=== PATIENT | female | born 1955 | race Caucasian/White ===

== ENCOUNTER 2023-03-01 10:21 | Emergency (ER) | payer OTHER ==
--- NOTE | 2023-03-01 11:09 | RAD REPORT ---
EXAM DESCRIPTION: CT - CTFB CLINICAL HISTORY: TRAUMA COMPARISON: No comparisons TECHNIQUE: Axial 2 mm thick images of the face were obtained with sagittal and coronal reconstructio n images. All CT scans are performed using dose optimization technique as appropriate and may include automated exposure control or mA/KV adjustment according to patient size. FINDINGS: No acute facial bone fracture is seen.The mandible is intact. The globes and orbital contents are grossly unremarkable.The paranasal sinuses and mastoids are clear . IMPRESSION: Negative for facial bone fracture.
--- NOTE | 2023-03-01 11:10 | RAD REPORT ---
EXAM DESCRIPTION: CT - Head Brain Wo Cont - 03/01/2023 11:02 am CLINICAL HISTORY: TRAUMA COMPARISON: No comparisons TECHNIQUE: All CT scans are performed using dose optimization technique as appropriate and may inclu de automated exposure control or mA/KV adjustment according to patient size. FINDINGS: No intracranial hemorrhage, hydrocephalus or extra-axial fluid collection.No areas of brai n edema or evidence of midline shift. The paranasal sinuses and mastoids are clear. The calvarium is intact. IMPRESSION: No acute intracranial abnormality.
--- NOTE | 2023-03-01 11:53 | ER ---
Nurse's Notes [facility] Name: Katie Iglesias Age: 67 yrs Sex: Female : 1955 Arrival Date: 03/01/2023 Time: 10:21 Bed 11 Private MD: Diagnosis: Unspecified injury of head, initial encounter;Contusion of unspecified part of head, initial encounter Presentation: 03/01 10:37 Coronavirus screen: Vaccine status: Patient reports receiving the 2nd dose of the covid ll1 vaccine. Client denies travel out of the [place] in the last 14 days. At this time, the client does not indicate any symptoms associated with coronavirus-19. Ebola Screen: Patient denies travel to an Ebola-affected area in the 21 days before illness onset. Mechanism of Injury:. Initial Sepsis Screen: Does the patient meet any 2 criteria? No. Patient's initial sepsis screen is negative. Does the patient have a suspected source of infection? No. Patient's initial sepsis screen is negative. Risk Assessment: Do you want to hurt yourself or someone else? Patient reports no desire to harm self or others. Onset of symptoms was February 26, 2023. 10:37 Method Of Arrival: Ambulatory ll1 10:37 Acuity: HELIO 3 ll1 10:44 Chief complaint: Patient states: Fell at movie theatre Wednesday. Hit L side of forehead. ll1 L eye bruising noted. Mechanism of Injury: resulted from a fall. Historical: - Allergies: 10:36 No Known Allergies; ll1 - PMHx: 10:36 Hypertensive disorder; Hypercholesterolemia; ll1 - PSHx: 10:36 L knee replacement; section; ll1 10:37 Thyroidectomy; ll1 - Immunization history:: Client reports receiving the 2nd dose of the Covid vaccine. - Social history:: Smoking status: Patient denies any tobacco usage or history of. - Family history:: not pertinent. Vital Signs: 10:37 BP 170 / 84; Pulse 62; Resp 17; Temp 98.6; Pulse Ox 98% ; Weight 67.13 kg; Height 5 ft. ll1 0 in. ; 11:40 BP 174 / 100; Pulse 59; Resp 17; Pulse Ox 97% ; jl7 11:57 BP 169 / 84; Pulse 62; Resp 18; Pulse Ox 98% on R/A; mb9 10:37 Body Mass Index 28.90 (67.13 kg, 152.4 cm) ll1 [place] Coma Score: 10:37 Eye Response: spontaneous(4). Motor Response: obeys commands(6). Verbal Response: ll1 oriented(5). Total: 15. 10:50 Eye Response: spontaneous(4). Motor Response: obeys commands(6). Verbal Response: cp3 oriented(5). Total: 15. ED Course: 10:31 Patient arrived in ED. ll1 10:32 Gladys Vincent MD is Attending Physician. cp3 10:38 Triage completed. ll1 10:39 Arm band placed on. ll1 11:02 CT Facial Bones W/O Con In Process Unspecified. EDMS 11:02 CT Head Brain wo Cont In Process Unspecified. EDMS 11:40 Viviana Ortega, RN is Primary Nurse. jl7 11:58 No provider procedures requiring assistance completed. Patient did not have IV access mb9 during this emergency room visit. Administered Medications: No medications were administered Outcome: 11:52 Discharge ordered by . cp3 11:58 Discharged to home ambulatory. mb9 11:58 Condition: stable 11:58 Discharge instructions given to patient, Instructed on discharge instructions, follow up and referral plans. Demonstrated understanding of instructions, follow-up care. 11:58 Patient left the ED. mb9 Signatures: Dispatcher [employer] EDAL Gladys Vincent MD MD cp3 Viviana Ortega, RN RN jl7 Jabari Guzman RN RN 1 Zamzam Sauceda RN RN mb9 Corrections: (The following items were deleted from the chart) 10:39 10:37 Pulse 62bpm; Resp 17bpm; Pulse Ox 98%; Temp 98.6F; 67.13 kg; Height 5 ft. 0 in.; ll1 BMI: 28.9; ll1
--- NOTE | 2023-03-01 11:53 | EDPHYS ---
Physician Documentation [facility] Name: Katie Iglesias Age: 67 yrs Sex: Female : 1955 Arrival Date: 03/01/2023 Time: 10: Bed 11 Private MD: SHAHANA Physician Gladys Vincent HPI: 03/01 10:50 This 67 yrs old Female presents to ER via Ambulatory with complaints of Closed Head cp3 Injury-Adult - 02/26. 10:50 The patient or guardian reports injury, tenderness. The complaints affect the forehead cp3 and left eye. Context of injury: The problem was sustained at an office, at the patient was at the movies and got up after sitting for 3 hours watching [place] and fell hitting her face and head . no loc. complaining of some mild left knee pain and mild chest wall discomfort. Onset: The symptoms/episode began/occurred 3 day(s) ago. Associated signs and symptoms: The patient has no apparent associated signs or symptoms, Pertinent negatives: patient denies any alcohol consumption, dazed, double vision, headache, nausea, neck pain, seizure, shortness of breath. Severity of symptoms: At their worst the symptoms were moderate. The patient has not experienced similar symptoms in the past. The patient has not recently seen a physician. Historical: - Allergies: 10:36 No Known Allergies; ll1 - PMHx: 10:36 Hypertensive disorder; Hypercholesterolemia; ll1 - PSHx: 10:36 L knee replacement; section; ll1 10:37 Thyroidectomy; ll1 - Immunization history:: Client reports receiving the 2nd dose of the Covid vaccine. - Social history:: Smoking status: Patient denies any tobacco usage or history of. - Family history:: not pertinent. ROS: 10:50 Constitutional: Negative for fever, chills, and weight loss, Eyes: Negative for injury, cp3 pain, redness, and discharge, ENT: Negative for injury, pain, and discharge, Neck: Negative for injury, pain, and swelling, Respiratory: Negative for shortness of breath, cough, wheezing, and pleuritic chest pain, Abdomen/GI: Negative for abdominal pain, nausea, vomiting, diarrhea, and constipation, Back: Negative for injury and pain, : Negative for injury, bleeding, discharge, and swelling, Skin: Negative for injury, rash, and discoloration, Neuro: Negative for headache, weakness, numbness, tingling, and seizure. 10:50 ENT: Positive for left facial brusing and contusion. 10:50 MS/extremity: Positive for tenderness, The patient on endorses right knee tenderness ambulatory without assistance. Exam: 10:50 Constitutional: This is a well developed, well nourished patient who is awake, alert, cp3 and in no acute distress. 10:50 ENT: Nares patent. No nasal discharge, no septal abnormalities noted. Tympanic membranes are normal and external auditory canals are clear. Oropharynx with no redness, swelling, or masses, exudates, or evidence of obstruction, uvula midline. Mucous membranes moist. Neck: Trachea midline, no thyromegaly or masses palpated, and no cervical lymphadenopathy. Supple, full range of motion without nuchal rigidity, or vertebral point tenderness. No Meningismus. Chest/axilla: Normal chest wall appearance and motion. Nontender with no deformity. No lesions are appreciated. Cardiovascular: Regular rate and rhythm with a normal S1 and S2. No gallops, murmurs, or rubs. Normal PMI, no JVD. No pulse deficits. Respiratory: Lungs have equal breath sounds bilaterally, clear to auscultation and percussion. No rales, rhonchi or wheezes noted. No increased work of breathing, no retractions or nasal flaring. Abdomen/GI: Soft, non-tender, with normal bowel sounds. No distension or tympany. No guarding or rebound. No evidence of tenderness throughout. Back: No spinal tenderness. No costovertebral tenderness. Full range of motion. 10:50 Skin: Warm, dry with normal turgor. Normal color with no rashes, no lesions, and no evidence of cellulitis. Neuro: Awake and alert, GCS 15, oriented to person, place, time, and situation. Cranial nerves II-XII grossly intact. Motor strength 5/5 in all extremities. Sensory grossly intact. Cerebellar exam normal. Normal gait. Psych: Awake, alert, with orientation to person, place and time. Behavior, mood, and affect are within normal limits. 10:50 Head/face: Patient with contusion over left forehead and orbit no crepitus. Extraocular movements are intact. 10:50 Musculoskeletal/extremity: Patient with mild tenderness over the left knee. No effusion or soft tissue swelling noted. Vital Signs: 10:37 BP 170 / 84; Pulse 62; Resp 17; Temp 98.6; Pulse Ox 98% ; Weight 67.13 kg; Height 5 ft. ll1 0 in. ; 11:40 BP 174 / 100; Pulse 59; Resp 17; Pulse Ox 97% ; jl7 11:57 BP 169 / 84; Pulse 62; Resp 18; Pulse Ox 98% on R/A; mb9 10:37 Body Mass Index 28.90 (67.13 kg, 152.4 cm) ll1 [employer] Coma Score: 10:37 Eye Response: spontaneous(4). Motor Response: obeys commands(6). Verbal Response: ll1 oriented(5). Total: 15. 10:50 Eye Response: spontaneous(4). Motor Response: obeys commands(6). Verbal Response: cp3 oriented(5). Total: 15. MDM: 10:32 Patient medically screened. cp3 10:50 Differential diagnosis: Contusion of head, face, Intracranial bleed- subdural, cp3 epidural, subarachnoid, intracerebral, Concussion without LOC. cerebral contusion. Data reviewed: vital signs, nurses notes, radiologic studies, CT scan. Consideration of Admission/Observation Escalation of care including admission/observation considered. I considered the following discharge prescriptions or medication management in the emergency department Patient declined medications at this time. Offered Motrin Tylenol. 11:51 ED course: results reviewed with patient and family at bedside. cp3 11:53 ED course: bp elevated- patient took lisinopril at bedside. cp3 03/01 10:49 Order name: CT Facial Bones W/O Con; Complete Time: 11:49 cp3 03/01 11:50 Interpretation: No acute disease. cp3 03/01 10:49 Order name: CT Head Brain wo Cont; Complete Time: 11:49 cp3 03/01 11:50 Interpretation: No acute disease. cp3 Administered Medications: No medications were administered Disposition Summary: 03/01/23 11:52 Discharge Ordered Location: Home cp3 Condition: Stable cp3 Diagnosis - Unspecified injury of head, initial encounter cp3 - Contusion of unspecified part of head, initial encounter cp3 Discharge Instructions: - Discharge Summary Sheet cp3 - Head Injury, Adult cp3 - Hypertension, Adult, [id number] cp3 Forms: - Medication Reconciliation Form cp3 - Thank You Letter cp3 - Antibiotic Education cp3 - Prescription Opioid Use cp3 - Patient Portal Instructions cp3 - Leadership Thank You Letter cp3 Signatures: Dispatcher [employer] Gladys Woody MD MD cp3 Jabari Guzman RN RN ll1
[2023-03-01 12:02] VITALS: TEMP 98.6
[2023-03-01 12:04] VITALS: BP 169/84; O2SAT 98
== END 2023-03-01 11:58 | disposition home or self-care (01) ==
LOC: ER 10:21
DX: S00.83XA Contusion of other part of head, initial encounter (principal); R07.9 Chest pain, unspecified; M25.562 Pain in left knee; I10 Essential (primary) hypertension; Z96.652 Presence of left artificial knee joint
CPT/HCPCS: 70450; 70486; 76377; 99283

== ENCOUNTER 2023-03-14 14:52 | Emergency (ER) | payer OTHER ==
--- OUTSIDE RECORDS SUMMARY | 2023-03-14 14:55 | XMS REPORT | Continuity of Care Document ---
:1955 Author Organization [facility] t Address [address] [facility] [place] [address] Care Team Providers Name Role Phone Asked, No Pcp Primary Care Physician Unavailable SISSY SPENCE Attending Clinician Unavailable GILMA ARANGO Attending Clinician Unavailable Ish Richard MA Attending Clinician Unavailable Dean Jerry MD Attending Clinician ALLIE NAPIER Attending Clinician Unavailable Allie Napier MD Attending Clinician [phone] Payers Payer Name Policy Type Policy Number Effective Date Expiration Date Lynn LEIVA MA PPO 5 [id number] 2022 00:00:00 Problems Condition Condition Condition Status Onset Resolution Last Treating Co mments Source Name Details Category Date Date Treatment Clinician Date Primary Primary Disease Active Kaila hypertensi hypertensi 616 Se ybold on on 00:00: - 00 Externa l Hyperlipid Hyperlipid Disease Active Clraitza wisdom emia emia 6-16 Seybold 00:00: - 00 Externa l 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 Social History Social Habit Start Date Stop Date Quantity Comments Source [facility] Tobacco use and 2023-01-14 2023-01-14 Smokeless [facility] exposure 00:00:00 00:00:00 tobacco non-user Hospital Alcohol intake 2023-01-14 2023-01-14 Current drinker [facility] 00:00:00 00:00:00 of alcohol Hospital (finding) History of Social 2023-01-14 2023-01-[address] function 00:00:00 00:00:00 Hospital Sex Assigned At [birth year] [facility] Smoking Status Start Date Stop Date Source Never smoked tobacco [facility] Medications Ordered Filled Start Stop Current Ordering Indication Dosage Frequency Signature Comments Components Source Medication Medication Date Date Medication? Clinician (SIG) Name Name Lisinopril Yes lisinopril K elsey 10 MG oral 6-16 10 mg Seybold Tablet 15:07: tablet 1 - 23 po qd Externa l Lisinopril Yes lisinopril K elsey 10 MG oral -01 10 mg Seybold Tablet 12:05: tablet 1 - 02 po qd Externa l Benzonatate 2022- No 200mg 1 capsule Kaila 200 MG oral 12-10- (200 mg Seyb old Capsule 12:04: 00:00 total) - 26 :00 every 8 Externa hours l Furosemide Yes TAKE ONE Monster sey (LASIX) 20 5-27 (1) TABLET Sey bold MG oral 00:00: BY MOUTH - Tablet 00 EVERY DAY Externa NEEDED. l Furosemide Yes TAKE ONE Monster sey (LASIX) 20 5-27 (1) TABLET Sey bold MG oral 00:00: BY MOUTH - Tablet 00 EVERY DAY Externa NEEDED. l Simvastatin 2022- No 20mg Take 1 Monster sey 20 MG oral 5-05 12-10 tablet (20 Se ybold Tablet 00:00: 00:00 mg total) - 00 :00 by mouth Externa daily l Escitalopra 2022- No 1.5{eac 1.5 each Kaila m Oxalate 4-28 04-28 h} daily Seybold 10 MG oral 14:18: 00:00 - Tablet 24 :00 Externa l Simvastatin 2022- No simvastati Kaila 10 MG oral 4-28 -28 n 10 mg Seybo ld Tablet 14:11: 00:00 tablet 1 - 51 :00 po qd Externa l Furosemide 2022- No 1{each} 1 each K elsey 20 MG oral 4-28 -28 daily Seybold Tablet 14:10: 00:00 - 23 :00 Externa l Simvastatin 2022-0 Yes [id number] 40mg Take 1 Kaila 40 MG oral 4-28 tablet (40 Sey bold Tablet 00:00: mg total) - 00 by mouth Externa nightly l Escitalopra 0 Yes [id number] 40mg Take 2 Kaila m Oxalate 4-28 tablets Seybold 20 MG oral 00:00: (40 mg - Tablet 00 total) by Externa mouth l daily hydroCHLORO 2022-0 Yes [id number] 12.5mg Take 1 Kaila thiazide 4-28 tablet Seybold 12.5 MG 00:00: (12.5 mg - oral Tablet 00 total) by Ext leonel mouth l daily Simvastatin 2022-0 Yes [id number] 40mg Take 1 Kaila 40 MG oral 4-28 tablet (40 Sey bold Tablet 00:00: mg total) - 00 by mouth Externa nightly l Escitalopra 0 Yes [id number] 40mg Take 2 Kaila m Oxalate 4-28 tablets Seybold 20 MG oral 00:00: (40 mg - Tablet 00 total) by Externa mouth l daily hydroCHLORO 2022-0 Yes [id number] 12.5mg Take 1 Kaila thiazide 4-28 tablet Seybold 12.5 MG 00:00: (12.5 mg - oral Tablet 00 total) by Ext leonel mouth l daily Simvastatin 2022-0 Yes [id number] 40mg Take 1 Kaila 40 MG oral 4-28 tablet (40 Sey bold Tablet 00:00: mg total) - 00 by mouth Externa nightly l Escitalopra Yes [id number] 40mg Take 2 Kaila m Oxalate 4-28 tablets Seybold 20 MG oral 00:00: (40 mg - Tablet 00 total) by Externa mouth l daily hydroCHLORO 0 2022- No [id number] 12.5mg Take 1 Kaila thiazide 4-28 06-16 tablet Seybold 12.5 MG 00:00: 00:00 (12.5 mg - oral Tablet 00 :00 total) by Ext leonel mouth l daily methylPREDN Yes USE Phuong ey ISolone 4 4-24 DIRECTED Seybol d MG oral 00:00: BY PACKAGE - Tablet 00 INSTRUCTIO Externa Therapy NS. l Pack methylPREDN 2022- No USE Monster sey ISolone 4 4-24 12-10 DIRECTED Seybo ld MG oral 00:00: 00:00 BY PACKAGE - Tablet 00 :00 INSTRUCTIO Externa Therapy NS. l Pack Escitalopra 2021-07 Yes 1.5{eac 1.5 each Kaila m Oxalate 0-04 h} daily Seybold 10 MG oral 13:37: - Tablet 52 Externa l Furosemide 2021-07 Yes 1{each} 1 each Ke lsey 20 MG oral 0-04 daily Seybold Tablet 13:37: - 52 Externa l Lisinopril 2021-07 Yes lisinopril K elsey 10 MG oral 0-04 10 mg Seybold Tablet 13:37: tablet 1 - 52 po qd Externa l Simvastatin 2021-07 Yes simvastati Kaila 10 MG oral 0-04 n 10 mg Seybol d Tablet 13:37: tablet 1 - 52 po qd Externa l Lisinopril 2021-07 Yes lisinopril K elsey 10 MG oral 0-04 10 mg Seybold Tablet 13:37: tablet 1 - 52 po qd Externa l Immunizations Ordered Immunization Filled Immunization Date Status Commen ts Source Name Name COVID-19 BIVALENT 2022-04-28 Completed Kaila Seybold VACCINE MODERNA 00:00:00 - Externa l COVID-19 BIVALENT 2022-04-28 Completed Kaila Hernandesybold BOOSTER VACCINE 00:00:00 - Externa l MODERNA COVID-19 BIVALENT 2022-04-28 Completed Kaila Seybold VACCINE MODERNA 00:00:00 - Externa l Influenza Virus 2022-04-11 Completed Kaila rocheold Vaccine, Split, up 00:00:00 - Exte rnal to age 3 Pneumococcal 2022-04-11 Completed Kaila Seybo ld Vaccine, Conjugate 00:00:00 - Exte rnal 20 Influenza Virus 2022-04-11 Completed Kaila Hernandes ybold Vaccine, Split, up 00:00:00 - Exte rnal to age 3 Pneumococcal 2022-04-11 Completed Kaila Seybo ld Vaccine, Conjugate 00:00:00 - Exte rnal 20 Influenza Virus 2022-04-11 Completed Kaila Hernandes ybold Vaccine, Split, up 00:00:00 - Exte rnal to age 3 Pneumococcal 2022-04-11 Completed Kaila Seybo ld Vaccine, Conjugate 00:00:00 - Exte rnal 20 Pneumococcal 2022-03-25 Completed Kaila Seybo ld Vaccine, Conjugate 00:00:00 - Exte rnal 20 Pneumococcal 2022-03-25 Completed Kaila Seybo ld Vaccine, Conjugate 00:00:00 - Exte rnal 20 Pneumococcal 2022-03-25 Completed Kaila Seybo ld Vaccine, Conjugate 00:00:00 - Exte rnal 20 Pneumococcal 2022-03-25 Completed Kaila Seybo ld Vaccine, Conjugate 00:00:00 - Exte rnal 20 COVID-19 BIVALENT 2021-11-07 Completed Kaila Seybold VACCINE MODERNA 00:00:00 - Externa l Covid-19 Vaccine 2021-11-07 Completed Kaila thomas Moderna (Spikevax), 00:00:00 - Ext ernal Mrna-lnp, Julián Protein, Pf COVID-19 BIVALENT 2021-11-07 Completed Kaila Smithold BOOSTER VACCINE 00:00:00 - Externa l MODERNA COVID-19 BIVALENT 2021-11-07 Completed Kaila Hernandesybold VACCINE MODERNA 00:00:00 - Externa l Covid-19 Vaccine 2021-11-07 Completed Kaila Bailey eybold Moderna (Spikevax), 00:00:00 - Ext ernal Mrna-lnp, Julián Protein, Pf Tdap- (Boostrix, 2021-10-07 Completed Kaila thomas Adacel) 00:00:00 - External Tdap- (Boostrix, 2021-10-07 Completed Kaila thomas Adacel) 00:00:00 - External Tdap- (Boostrix, 2021-10-07 Completed Kaila thomas Adacel) 00:00:00 - External Tdap- (Boostrix, 2021-10-07 Completed Kaila thomas Adacel) 00:00:00 - External Influenza, 2021-05-05 Completed Kaila Mcintosh Injectable, Mdck, 00:00:00 - Exter nal Preservative Free, Quadrivalt Influenza, 2021-05-05 Completed Kaila Mcintosh Injectable, Mdck, 00:00:00 - Exter nal Preservative Free, Quadrivalt Influenza, 2021-05-05 Completed Kaila Mcintosh Injectable, Mdck, 00:00:00 - Exter nal Preservative Free, Quadrivalt Influenza, 2021-05-05 Completed Kaila Mcintosh Injectable, Mdck, 00:00:00 - Exter nal Preservative Free, Quadrivalt Covid-19 Vaccine 2020-08-08 Completed Kaila thomas Moderna (Spikevax), 00:00:00 - Ext ernal Mrna-lnp, Julián Protein, Pf Covid-19 Vaccine 2020-08-08 Completed Kaila thomas Moderna (Spikevax), 00:00:00 - Ext ernal Mrna-lnp, Julián Protein, Pf Covid-19 Vaccine 2020-08-08 Completed Kaila thomas Moderna (Spikevax), 00:00:00 - Ext ernal Mrna-lnp, Julián Protein, Pf Covid-19 Vaccine 2020-08-08 Completed Kaila thomas Moderna (Spikevax), 00:00:00 - Ext ernal Mrna-lnp, Julián Protein, Pf Covid-19 Vaccine 2020-07-12 Completed Kaila thomas Moderna (Spikevax), 00:00:00 - Ext ernal Mrna-lnp, Julián Protein, Pf Covid-19 Vaccine 2020-07-12 Completed Kaila thomas Moderna (Spikevax), 00:00:00 - Ext ernal Mrna-lnp, Julián Protein, Pf Covid-19 Vaccine 2020-07-12 Completed Kaila myersamparo Moderna (Spikevax), 00:00:00 - Ext ernal Mrna-lnp, Julián Protein, Pf Covid-19 Vaccine 2020-07-12 Completed Kaila Lynn myersamparo Moderna (Spikevax), 00:00:00 - Ext ernal Mrna-lnp, Julián Protein, Pf Covid-19 Vaccine 2020-07-10 Completed Kaila myersamparo Moderna (Spikevax), 00:00:00 - Ext ernal Mrna-lnp, Julián Protein, Pf Covid-19 Vaccine 2020-07-10 Completed Kailaadam myersamparo Moderna (Spikevax), 00:00:00 - Ext ernal Mrna-lnp, Julián Protein, Pf Covid-19 Vaccine 2020-07-10 Completed Kaila Lynn myersamparo Moderna (Spikevax), 00:00:00 - Ext ernal Mrna-lnp, Julián Protein, Pf Covid-19 Vaccine 2020-07-10 Completed Kaila myersamparo Moderna (Spikevax), 00:00:00 - Ext ernal Mrna-lnp, Julián Protein, Pf Influenza Virus 2020-03-12 Completed Kaila Se ybold Vaccine, Split, up 00:00:00 - Exte rnal to age 3 Influenza Virus 2020-03-12 Completed Kaila Hernandes ybold Vaccine, Split, up 00:00:00 - Exte rnal to age 3 Influenza Virus 2020-03-12 Completed Kaila Se ybold Vaccine, Split, up 00:00:00 - Exte rnal to age 3 Influenza Virus 2020-03-12 Completed Kaila Se ybold Vaccine, Split, up 00:00:00 - Exte rnal to age 3 Influenza Virus 2019-11-09 Completed Kaila Se ybold Vaccine, No Preserv, 00:00:00 - Ex ternal age 6 months and up Influenza Virus 2019-11-09 Completed Kaila Se ybold Vaccine, No Preserv, 00:00:00 - Ex ternal age 6 months and up Influenza Virus 2019-11-09 Completed Kaila Se ybold Vaccine, No Preserv, 00:00:00 - Ex ternal age 6 months and up Influenza Virus 2019-11-09 Completed Kaila Se ybold Vaccine, No Preserv, 00:00:00 - Ex ternal age 6 months and up Influenza Virus 2019-07-12 Completed Kaila Se ybold Vaccine, 00:00:00 - External Quadrivalent, High Dose, Age 65 And Up Influenza Virus 2019-07-12 Completed Kaila Se ybold Vaccine, 00:00:00 - External Quadrivalent, High Dose, Age 65 And Up Influenza Virus 2019-07-12 Completed Kaila Se ybold Vaccine, 00:00:00 - External Quadrivalent, High Dose, Age 65 And Up Influenza Virus 2019-07-12 Completed Kaila Se ybold Vaccine, 00:00:00 - External Quadrivalent, High Dose, Age 65 And Up Vital Signs Vital Name Observation Time Observation Value Comments Source Systolic blood 2022-12-25 20:03:00 132 mm[Hg] Kaila Seybold - pressure External Diastolic blood 2022-12-25 20:03:00 72 mm[Hg] Kelse y Seybold - pressure External Heart rate 2022-12-25 20:03:00 69 /min Kaila S eybold - External Body temperature 2022-12-25 20:03:00 36.44 Bailey Phuong ey Seybold - External Respiratory rate 2022-12-25 20:03:00 20 /min Phuong ey Seybold - External Body height 2022-12-25 20:03:00 152.4 cm Kaila S eybold - External Oxygen saturation in 2022-12-25 20:03:00 97 /min Kaila Mcintosh - Arterial blood by External Pulse oximetry Systolic blood 2022-12-10 17:01:00 118 mm[Hg] Kaila Seybold - pressure External Diastolic blood 2022-12-10 17:01:00 66 mm[Hg] Kelse y Seybold - pressure External Heart rate 2022-12-10 17:01:00 87 /min Kaila S eybold - External Body temperature 2022-12-10 17:01:00 36.28 Bailey Phuong ey Seybold - External Respiratory rate 2022-12-10 17:01:00 14 /min Phuong ey Seybold - External Body height 2022-12-10 17:01:00 152.4 cm Kaila S eybold - External Systolic blood 2022-11-06 18:47:00 139 mm[Hg] Kaila Seybold - pressure External Diastolic blood 2022-11-06 18:47:00 86 mm[Hg] Kelse y Seybold - pressure External Heart rate 2022-11-06 18:47:00 56 /min Kaila S eybold - External Body temperature 2022-11-06 18:47:00 36.61 Bailey Phuong ey Seybold - External Respiratory rate 2022-11-06 18:47:00 15 /min Phuong ey Seybold - External Body height 2022-11-06 18:47:00 152.4 cm Kaila Bailey eybold - External Oxygen saturation in 2022-11-06 18:47:00 98 /min Kaila Mcintosh - Arterial blood by External Pulse oximetry Systolic blood 2022-04-14 18:34:00 140 mm[Hg] Kaila Seybold - pressure External Diastolic blood 2022-04-14 18:34:00 62 mm[Hg] Monsterse y Seybold - pressure External Heart rate 2022-04-14 18:34:00 67 /min Kaila Bailey eybold - External Body temperature 2022-04-14 18:34:00 37.17 Bailey Phuong ey Seybold - External Respiratory rate 2022-04-14 18:34:00 16 /min Phuong ey Seybold - External Body height 2022-04-14 18:34:00 152.4 cm Kaila Bailey eybold - External Body height 2023-01-14 14:29:00 152.4 cm [facility] Body weight 2023-01-14 14:29:00 68.04 kg [facility] BMI 2023-01-14 14:29:00 29.29 kg/m2 [facility] Procedures Procedure Date / Time Performing Clinician Source Performed XR KNEE 4+ VW RIGHT 2023-01-14 14:36:54 Dean Jerry [facility] NE ARTHROCENTESIS 2023-01-14 14:20:00 Deb Suarez [facility] ASPIR&/INJ MAJOR JT/BURSMaulik Rojas W/O US Plan of Care Planned Activity Planned Date Details Comments Source Future Scheduled 2023-03-10 Screening for [facility] Test 00:09:57 malignant neoplasm of colon (procedure) [code = 007724517] Future Scheduled 2023-03-10 Screening for [facility] Test 00:09:57 malignant neoplasm of colon (procedure) [code = 349844412] Future Scheduled 2023-03-10 Screening for [facility] Test 00:09:57 malignant neoplasm of colon (procedure) [code = 045679428] Future Scheduled 2023-03-10 65+ PNEUMOCOCCAL [facility] Test 00:09:57 VACCINE (1 - PCV) [code = 65+ PNEUMOCOCCAL VACCINE (1 - PCV)] Future Scheduled 2023-03-10 Hepatitis C screening [facility] Test 00:09:57 (procedure) [code = 849642293] Future Scheduled 2023-03-10 BREAST CANCER [facility] Test 00:09:57 SCREENING [code = BREAST CANCER SCREENING] Future Scheduled 2023-03-10 Screening for [facility] Test 00:09:57 malignant neoplasm of colon (procedure) [code = 277530749] Future Scheduled 2023-03-10 Screening for [facility] Test 00:09:57 malignant neoplasm of colon (procedure) [code = 867028696] Future Scheduled 2023-03-10 SHINGLES VACCINES (1 Met [facility] Test 00:09:57 of 2) [code = SHINGLES VACCINES (1 of 2)] Future Scheduled 2023-03-10 COVID-19 VACCINE (5 - Me [facility] Test 00:09:57 Moderna series) [code = COVID-19 VACCINE (5 - Moderna series)] Future Scheduled 2023-03-10 INFLUENZA VACCINE (#1) [facility] Test 00:09:57 [code = INFLUENZA VACCINE (#1)] Encounters Start End Encounter Admission Attending Care Care Encounter Source Date/Time Date/Time Type Type Clinicians Facility Department ID 2023-03-18 2023-03-18 Outpatient KAILA SPENCE [id number] Kaila 11:30:00 11:30:00 SISSY rodriguez 2023-03-12 2023-03-12 Outpatient KAILA SPENCE [id number] Kaila 00:00:00 00:00:00 SISSY rodriguez 2023-03-11 2023-03-11 Outpatient GILMA ARANGO KAILA CLIFFORD [id number] Kaila 11:30:00 11:30:00 Seybol d 2023-03-05 2023-03-05 Telephone Jose Manuel, 1.2.840.1 [id number] Methodi 00:00:00 00:00:[address] 3.430.2.7 Hospit a .3.711915 l .8 2023-03-01 2023-03-01 Outpatient KAILA SPENCE [id number] Kaila 00:00:00 00:00:00 SISSY Seybol d 2023-02-25 2023-02-25 Telephone Jose Manuel, 1.2.840.1 [id number] [facility] 00:00:00 00:00:[address] 3.430.2.7 Hospit a .3.889156 l .8 2023-01-28 2023-01-28 Outpatient KAILA SPENCE [id number] Kaila 11:15:00 11:15:00 SISSY Seybol d 2023-01-14 2023-01-14 Office Rosalino, 1.2.840.1 [id number] Methodi 09:20:00 10:01:52 Visit Dean Smith 38045.1.1 699 s t 3.430.2.7 Hospit a .3.196250 l .8 2023-01-14 2023-01-14 [facility] [id number] [place] 00:00:00 00:00:00 DEAN [address] [facility] 2023-01-14 2023-01-14 [facility] [id number] [place] 00:00:00 00:00:00 DEAN [address] 2022-12-25 2022-12-25 Outpatient KAILA SPENCE [id number] Kaila 15:00:00 15:00:00 SISSY Seybol d 2022-12-24 2022-12-24 Outpatient KAILA SPENCE [id number] Kaila 00:00:00 00:00:00 SISSY Seybol d 2022-12-10 2022-12-10 Outpatient KAILA NAPIER [id number] Kaila 11:45:00 11:45:00 ALLIE Seybol d 2022-12-10 2022-12-10 Outpatient KAILA NAPIER [id number] Kaila 00:00:00 00:00:00 ALLIE Seybol d 2022-12-09 2022-12-09 Outpatient KAILA SPENCE [id number] Kaila 10:30:00 10:30:00 SISSY Seybol d 2022-12-04 2022-12-04 Outpatient KAILA NAPIER [id number] Kaila 11:45:00 11:45:00 ALLIE Seybol d 2022-11-16 2022-11-16 Outpatient KAILA SPENCE [id number] Kaila 00:00:00 00:00:00 SISSY Seybol d 2022-11-10 2022-11-10 Outpatient KAILA SPENCE [id number] Kaila 00:00:00 00:00:00 SISSY Seybol d 2022-11-06 2022-11-06 Outpatient KAILA SPENCE [id number] Kaila 14:30:00 14:30:00 SISSY Seybol d 2022-11-02 2022-11-02 Outpatient KAILA NAPIER [id number] Kaila 00:00:00 00:00:00 ALLIE Seybol d 2022-08-10 2022-08-10 Travel 1.2.840.1 [id number] Methodi 00:00:00 00:00:[address] 3.430.2.7 0.2.7.3.698 Ho spita .3.169374 084.8 l .8 2022-04-20 2022-04-20 Outpatient KAILA NAPIER [id number] Kaila 00:00:00 00:00:00 ALLIE Seybol d 2022-04-14 2022-04-14 Outpatient KAILA NAPIER [id number] Kaila 13:30:00 13:30:00 ALLIE rodriguez 2022-02-23 2022-02-23 Office Gilma Napier 1.2.840.114 [id number] Kaila 11:15:00 11:45:00 Visit Allie Pena 350.1.13.13 Se bravo Gunn 1.2.7.2.686 [id number] Results This patient has no known results.
[2023-03-14 16:19] LABS: Absolute Lymphocytes (CBC) 2.5 K/uL (0.7-4.9); Hematocrit 39.2 % (36.0-45.0); Lymphocytes % 24.8 % (15.3-44.8); MCV 90.5 fL (80-100); MPV 8.9 fL (7.6-11.3); Platelets 218 thou/uL (152-406); RBC Red Blood Cell Count 4.33 M/uL (3.86-4.86)
[2023-03-14 16:27] LABS: Albumin 3.9 g/dL (3.4-5.0); Bilirubin Direct 0.3 mg/dL (0-0.2); Bilirubin Indirect, Calculated 0.6 mg/dL (0.2-0.8); Bilirubin Total 0.9 mg/dL (0.2-1.0); Potassium 4.2 mEq/L (3.5-5.1); Protein, Total 7.3 g/dL (6.4-8.2)
[2023-03-14] MEDS ORDERED: lisinopriL 20 MG TAB ONE (16:42)
--- NOTE | 2023-03-14 17:32 | EDPHYS ---
Physician Documentation [facility] Name: Katie Iglesias Age: 67 yrs Sex: Female : 1955 Arrival Date: 03/14/2023 Time: 14:52 Bed 11 Private MD: ED Physician Melody Plunkett HPI: 03/14 15:40 This 67 yrs old Female presents to ER via Unassigned with complaints of High Blood cp Pressure, Heart rate issue. 15:40 The patient has elevated blood pressure and discovered this at home, with a home device.cp 15:40 Onset: The symptoms/episode began/occurred gradually. cp 15:40 Associated signs and symptoms: Pertinent negatives: chest pain, dizziness, headache, cp lightheadedness, visual changes. Severity of symptoms: At its worst the blood pressure was 200 mm Hg, in the emergency department the blood pressure is improved, 166 mm Hg. Patient reports she takes prescribed lisinopril 10 mg daily and has been under increased stress lately. Historical: - Allergies: 15:29 No Known Allergies; iw - Home Meds: 15:28 lisinopril 10 mg Oral tablet daily [Active]; iw - PMHx: 15:28 Hypercholesterolemia; Hypertensive disorder; iw - PSHx: 15:28 section; Thyroidectomy; L knee replacement; iw ROS: 15:45 Constitutional: Negative for body aches, chills, fever, poor PO intake. cp 15:45 Eyes: Negative for injury, pain, redness, and discharge. cp 15:45 ENT: Negative for drainage from ear(s), ear pain, sore throat, difficulty swallowing, difficulty handling secretions. 15:45 Cardiovascular: Negative for chest pain, edema, palpitations. 15:45 Respiratory: Negative for cough, shortness of breath, wheezing. 15:45 Abdomen/GI: Negative for abdominal pain, nausea, vomiting, and diarrhea. 15:45 : Negative for urinary symptoms. 15:45 Neuro: Negative for altered mental status, dizziness, headache, weakness. 15:45 All other systems are negative. Exam: 15:50 Constitutional: The patient appears in no acute distress, alert, awake, cp non-diaphoretic, non-toxic, well developed, well nourished, overweight 15:50 Head/Face: Normocephalic, atraumatic. cp 15:50 Eyes: Periorbital structures: appear normal, Conjunctiva: normal, no exudate, no injection, Sclera: no appreciated abnormality, Lids and lashes: appear normal, bilaterally. 15:50 ENT: External ear(s): are unremarkable, Nose: is normal, Mouth: Lips: moist, Oral mucosa: pink and intact, moist, Posterior pharynx: is normal, airway is patent, no erythema, no exudate, Voice: is normal. 15:50 Neck: ROM/movement: is normal, is supple, without pain, no range of motions limitations. 15:50 Chest/axilla: Inspection: normal. 15:50 Cardiovascular: Rate: normal, Rhythm: regular. 15:50 Respiratory: the patient does not display signs of respiratory distress, Respirations: normal, no use of accessory muscles, no retractions, labored breathing, is not present, Breath sounds: are clear throughout, no decreased breath sounds, no stridor, no wheezing. 15:50 Abdomen/GI: Inspection: abdomen appears normal, Palpation: abdomen is soft and non-tender, in all quadrants. 15:50 Back: pain, is absent, ROM is normal. cp 15:50 Skin: no rash present. cp 15:50 Neuro: Orientation: to person, place \T\ time. Mentation: is normal, Motor: moves all fours, strength is normal, Sensation: is normal, Gait: is steady. 16:45 ECG was reviewed by the Attending Physician. Vital Signs: 15:26 BP 166 / 86; Pulse 71; Resp 16; Temp 98.1; Pulse Ox 96% ; iw MDM: 15:34 Patient medically screened. cp 16:00 Differential diagnosis: hypertensive crisis, Malignant HTN, cardiac arrythmia, kidney cp disease, electrolyte abnormality. 17:30 Data reviewed: vital signs, nurses notes, lab test result(s), EKG. 17:30 I considered the following discharge prescriptions or medication management in the emergency department Medications were administered in the Emergency Department. See MAR. Care significantly affected by the following chronic conditions: Hypertension. Counseling: I had a detailed discussion with the patient and/or guardian regarding the historical points, exam findings, and any diagnostic results supporting the discharge/admit diagnosis, the presence of at least one elevated blood pressure reading (>120/80) during this emergency department visit, lab results, the need for outpatient follow up, for definitive care, a family practitioner. 03/14 15:35 Order name: Basic Metabolic Panel; Complete Time: 16:36 cp 03/14 16:36 Interpretation: Normal except: CRE 1.03; GFR 59. cp 03/14 15:35 Order name: CBC with Diff; Complete Time: 16:36 cp 03/14 15:35 Order name: LFT's; Complete Time: 16:36 03/14 16:36 Interpretation: Normal except: AST 12; BILID 0.3. 03/14 15:35 Order name: EKG; Complete Time: 15:36 cp 03/14 15:35 Order name: Cardiac monitoring cp 03/14 15:35 Order name: EKG - Nurse/Tech; Complete Time: 16:57 03/14 15:35 Order name: IV Saline Lock 03/14 15:35 Order name: Labs collected and sent; Complete Time: 16:57 cp 03/14 15:35 Order name: O2 Per Protocol 03/14 15:35 Order name: O2 Sat Monitoring cp EC:45 Rate is 63 beats/min. Rhythm is regular. HI interval is normal. QRS interval is normal. cp QT interval is normal. T waves are Inverted in leads III, aVR. Interpreted by me. Reviewed by me. Administered Medications: 16:27 CANCELLED (Physician Discretion): hydrALAZINE IVP 5 mg IVP once cp 16:40 Drug: Lisinopril PO 20 mg Route: PO; iw Disposition Summary: 03/14/23 17:31 Discharge Ordered Location: Home cp Problem: chronic cp Symptoms: have improved cp Condition: Stable cp Diagnosis - Hypertensive heart disease without heart failure cp Followup: cp - With: Private Physician - When: 2 - 3 days - Reason: Recheck today's complaints Discharge Instructions: - Discharge Summary Sheet cp - High-Fiber Eating Plan cp - Hypertension, Adult cp - Mediterranean Diet cp Forms: - Medication Reconciliation Form cp - Thank You Letter cp - Antibiotic Education cp - Prescription Opioid Use cp - Patient Portal Instructions cp - Leadership Thank You Letter cp Prescriptions: - Lisinopril 20 mg Oral Tablet - take 1 tablet by ORAL route once daily; 30 tablet; Refills: 0, Product cp Selection Permitted Signatures: Dispatcher [employer] Emmy Juan RN RN iw Page, Aaron, PA PA cp Corrections: (The following items were deleted from the chart) 16:27 15:40 hydrALAZINE IVP 5 mg IVP once ordered. cp cp 17:30 15:45 This 67 yrs old Female presents to ER via Unassigned with complaints of High cp Blood Pressure, Heart rate issue. cp
--- NOTE | 2023-03-14 17:32 | ER ---
Nurse's Notes [facility] Name: Katie Iglesias Age: 67 yrs Sex: Female : 1955 Arrival Date: 03/14/2023 Time: 14:52 Bed 11 Private MD: Diagnosis: Hypertensive heart disease without heart failure Presentation: 03/14 15:26 Chief complaint: Patient states: her BP has been running high but she has been taking iw her medicine, she has been under a lot of stress, her son is making her stressed, her passed a couple years ago. Ebola Screen: Patient negative for fever greater than or equal to 101.5 degrees Fahrenheit, and additional compatible Ebola Virus Disease symptoms Patient denies exposure to infectious person. Patient denies travel to an Ebola-affected area in the 21 days before illness onset. No symptoms or risks identified at this time. Initial Sepsis Screen: Does the patient meet any 2 criteria? No. Patient's initial sepsis screen is negative. Does the patient have a suspected source of infection? No. Patient's initial sepsis screen is negative. Risk Assessment: Do you want to hurt yourself or someone else? Patient reports no desire to harm self or others. 15:26 Acuity: HELIO 3 iw 15:30 Coronavirus screen: At this time, the client does not indicate any symptoms associated iw with coronavirus-19. Onset of symptoms was March 14, 2023. 15:30 Method Of Arrival: Ambulatory iw Historical: - Allergies: 15:29 No Known Allergies; iw - Home Meds: 15:28 lisinopril 10 mg Oral tablet daily [Active]; iw - PMHx: 15:28 Hypercholesterolemia; Hypertensive disorder; iw - PSHx: 15:28 section; Thyroidectomy; L knee replacement; iw Screenin:28 [facility] ED Fall Risk Assessment (Adult) Score/Fall Risk Level 0 - 2 = Low Risk. Abuse iw screen: Denies threats or abuse. Denies injuries from another. Nutritional screening: No deficits noted. Tuberculosis screening: No symptoms or risk factors identified. Assessment: 15:29 General: Appears in no apparent distress. Behavior is calm, cooperative. Pain: Denies iw pain. Neuro: Level of Consciousness is awake, alert, obeys commands, Oriented to person, place, time, situation, Moves all extremities. Full function. Cardiovascular: Patient's skin is warm and dry. Respiratory: Respiratory effort is even, unlabored, Respiratory pattern is regular, symmetrical. GI: No signs and/or symptoms were reported involving the gastrointestinal system. Derm: Skin is intact, is healthy with good turgor. Musculoskeletal: Range of motion: intact in all extremities. 16:41 Reassessment: Patient appears in no apparent distress at this time. Patient and/or iw family updated on plan of care and expected duration. Pain level reassessed. Patient is alert, oriented x 3, equal unlabored respirations, skin warm/dry/pink. Vital Signs: 15:26 BP 166 / 86; Pulse 71; Resp 16; Temp 98.1; Pulse Ox 96% ; iw ED Course: 14:54 Patient arrived in ED. im 14:56 Aaron Islas PA is PHCP. cp 14:58 Melody Plunkett MD is Attending Physician. cp 15:28 Triage completed. iw 15:28 Arm band placed on. iw 16:26 Emmy Ryder RN is Primary Nurse. iw 16:41 No provider procedures requiring assistance completed. Patient did not have IV access iw during this emergency room visit. Administered Medications: 16:27 CANCELLED (Physician Discretion): hydrALAZINE IVP 5 mg IVP once cp 16:40 Drug: Lisinopril PO 20 mg Route: PO; iw Medication: 15:29 VIS not applicable for this client. iw Outcome: 17:31 Discharge ordered by MD. cp 17:50 Discharged to home ambulatory, with family. iw 17:50 Condition: good 17:50 Discharge instructions given to patient, Instructed on discharge instructions, follow up and referral plans. medication usage, Demonstrated understanding of instructions, follow-up care, medications, Prescriptions given X 1. 17:54 Patient left the ED. iw Signatures: Emmy Ryder RN RN iw Aaron Islas PA PA cp Nicole Castle im
[2023-03-14 17:59] VITALS: BP 166/86; TEMP 98.1; O2SAT 96
--- NOTE | 2023-03-16 16:51 | EKG ---
Test Date: 2023-03-14 Test Time: 16:39:33 Occupational Therapist Rehab Manager: KRISTIE MEASUREMENT RESULTS: Intervals: Rate: 63 MO: 154 QRSD: 72 QT: 422 QTc: 431 [place]: P: 54 MO: 154 QRS: -6 T: 9 INTERPRETIVE STATEMENTS: Normal sinus rhythm Possible Left atrial enlargement Possible Inferior infarct, age undetermined Cannot rule out Anterior infarct, age undetermined Abnormal ECG No previous ECG available for comparison Electronically Signed On 03-16-23 16:45:32 CDT by Monroe Dye
== END 2023-03-14 17:54 | disposition home or self-care (01) ==
LOC: ER 14:52
DX: I11.9 Hypertensive heart disease without heart failure (principal); I10 Essential (primary) hypertension; E78.00 Pure hypercholesterolemia, unspecified
CPT/HCPCS: 36415; 80048; 80076; 85025; 93005; 99283

== ENCOUNTER 2023-11-04 13:36 | Inpatient (IN) | payer OTHER ==
[2023-11-04 15:40] LABS: PT Prothrombin Time 11.8 SECONDS (9.5-12.5); Protime INR 1.07
[2023-11-04 15:41] LABS: Absolute Basophils 0.1 K/uL (0-0.5); Absolute Lymphocytes (CBC) 1.4 K/uL (0.7-4.9); Absolute Monocytes 0.9 K/uL (0.1-1.3); Absolute Neutrophil 8.2 K/uL (1.8-8.0); Basophils % 0.5 % (0-1.3); Eosinophils % 0.3 % (0-4.4); Hematocrit 39.6 % (36.0-45.0); Hemoglobin 13.4 g/dL (12.0-15.0); Lymphocytes % 13.2 % (15.3-44.8); MCH 29.9 pg (27.0-35.0); MCHC 33.7 g/dL (32.0-36.0); MCV 88.6 fL (80-100); MPV 8.4 fL (7.6-11.3); Monocytes % 8.3 % (3.3-12.3); Neutrophils % 77.7 % (41.7-73.7); Platelets 215 thou/uL (152-406); RBC Red Blood Cell Count 4.47 M/uL (3.86-4.86); Red Cell Distribution Width 13.8 % (12.1-15.2)
--- NOTE | 2023-11-04 15:47 | RAD REPORT ---
EXAM DESCRIPTION: CT - Head Brain Wo Cont - 11/04/2023 2:33 pm CLINICAL HISTORY: Confused;Declining state COMPARISON: Facial Bones W/ Mpr dated 03/01/2023; Head Brain Wo Cont dated 03/01/2023; Brain Wo Cont d ated 09/15/2023 TECHNIQUE: Noncontrast head CT images were obtained without IV contrast. Multiplanar reformats were generated and reviewed. All CT scans are performed using dose optimization technique as appropriate and may include automated exposure control or mA/KV adjustment according to patient size. FINDINGS: No intracranial hemorrhage, mass, or edema. Midline structures are unremarkable. Stable ventricular caliber, with disproportionate prominence of the ventricles relative to the sulci. Mild periventricular T2 hyperintensities, nonspecific, but suggestive of chronic small vessel ischem ic changes. Ivory-white matter differentiation is preserved, without evidence of acute infarct. No abnormal extra- axial fluid collections. Mastoid air cells and visualized portions of the paranasal sinuses are clear. No acute bony findings. IMPRESSION: Stable prominence of the ventricular caliber relative to the sulci in findings may relat e to centrally predominant volume loss or normal pressure hydrocephalus. Please correlate clinically. No acute intracranial process.
[2023-11-04 15:59] LABS: Albumin 3.7 g/dL (3.4-5.0); Anion Gap 9.7 mEq/L (5.0-15.0); Bilirubin Direct 0.3 mg/dL (0-0.2); Bilirubin Indirect, Calculated 0.7 mg/dL (0.2-0.8); Globulin 3.7 g/dL (2.3-3.5); Magnesium 1.8 mg/dL (1.6-2.4); Potassium 3.7 mEq/L (3.5-5.1); Protein, Total 7.4 g/dL (6.4-8.2); Troponin High Sensitivity 9.7 pg/mL (<58.9)
[2023-11-04] MEDS ORDERED: NA CHLORIDE 0.9% 500 ML ONE (16:31)
--- NOTE | 2023-11-04 16:36 | RAD REPORT ---
[facility]05 pm CLINICAL HISTORY: ams COMPARISON: No comparisons TECHNIQUE: Portable AP view of the chest. FINDINGS: The lungs are clear. No pneumothorax or effusion. The cardiomediastinal contours are unre markable. IMPRESSION: No acute cardiopulmonary process.
--- NOTE | 2023-11-04 17:10 | ER ---
Nurse's Notes [facility] Name: Katie Iglesias Age: 67 yrs Sex: Female : 1955 Arrival Date: 11/04/2023 Time: 13:36 Bed 7 Private MD: Diagnosis: Altered mental status Presentation: 11/03 14:08 Chief complaint: Spouse and/or significant other states: she sees a neurologist for iw possible dementia, last night she told me she was not feeling right, is having a harder time with mobility and functional and behavioral decline, has been declining over past 6-8 months, and more acutely there was a change overnight. had diarrhea yesterday. Coronavirus screen: At this time, the client does not indicate any symptoms associated with coronavirus-19. Ebola Screen: Patient negative for fever greater than or equal to 101.5 degrees Fahrenheit, and additional compatible Ebola Virus Disease symptoms Patient denies exposure to infectious person. Patient denies travel to an Ebola-affected area in the 21 days before illness onset. No symptoms or risks identified at this time. Initial Sepsis Screen: Does the patient meet any 2 criteria? No. Patient's initial sepsis screen is negative. Does the patient have a suspected source of infection? No. Patient's initial sepsis screen is negative. Risk Assessment: Do you want to hurt yourself or someone else? Patient reports no desire to harm self or others. Onset of symptoms was November 03, 2023. 14:08 Method Of Arrival: Wheelchair iw 14:08 Acuity: HELIO 3 iw Historical: - Allergies: 14:11 No Known Allergies; iw - Home Meds: 14:11 lisinopril 40 mg oral tablet daily [Active]; simvastatin 40 mg oral tablet daily iw [Active]; duloxetine 60 mg oral capsule,delayed release (e.c.) daily [Active]; Rexulti 0.5 mg oral tablet daily [Active]; - PMHx: 14:11 Hypercholesterolemia; Hypertensive disorder; iw - PSHx: 14:11 section; L knee replacement; Thyroidectomy; iw - Immunization history:: Adult Immunizations. - Infectious Disease History:: Denies. - Social history:: Smoking status: Patient denies any tobacco usage or history of. Screenin:06 [facility] ED Fall Risk Assessment (Adult) History of falling in the last 3 months, db including since admission No falls in past 3 months (0 pts) Confusion or Disorientation No (0 pts) Intoxicated or Sedated No (0 pts) Impaired Gait No (0 pts) Mobility Assist Device Used No (0 pt) Altered Elimination No (0 pt) Score/Fall Risk Level 0 - 2 = Low Risk Oriented to surroundings, Maintained a safe environment. Abuse screen: Denies threats or abuse. Denies injuries from another. Nutritional screening: No deficits noted. Tuberculosis screening: No symptoms or risk factors identified. Assessment: 15:05 Reassessment: Patient appears in no apparent distress at this time. Patient and/or db family updated on plan of care and expected duration. Pain level reassessed. Patient is alert, oriented x 3, equal unlabored respirations, skin warm/dry/pink. General: Appears in no apparent distress. comfortable, Behavior is calm, cooperative. Pain: Denies pain. Neuro: Level of Consciousness is awake, alert, obeys commands, Oriented to person, place, time, situation. Respiratory: Airway is patent Respiratory effort is even, unlabored, Respiratory pattern is regular, symmetrical. 15:17 Reassessment: Patient appears in no apparent distress at this time. Patient is alert, bp oriented x 3, equal unlabored respirations, skin warm/dry/pink. 16:44 Reassessment: PATIENT ASSISTED TO BEDSIDE COMMODE. db 16:45 [place] Swallow Protocol Brief Cognitive Screen What is your name? Normal, Where are you db right now? Normal, What year is it? Normal. Oral Mechanism Examination Facial Symmetry: Normal, Motion: Normal, Lip Closure: Normal, Oral Mechanism Result: Normal. 3 oz Water Swallow Challenge: Pt able to drink all water without stopping, coughing, choking or throat clearing: Yes Result: PASS. 16:46 VAN Scoring: Arm Drift: Patients demonstrates NO arm weakness. Patient is VAN Negative. bp [place] Swallow Protocol Exclusion Criteria: Unable to remain alert for testing: No NPO for medical/surgical reason by provider order No Head-of-bed restricted <30 degrees Tracheostomy tube present No No thin liquids due to preexisting dysphagia/baseline modified diet thickened liquids No Exclusion Criteria Result: Proceed. TNKase (Tenecteplase) Screening: Contraindications: Patient reports onset of signs and symptoms of stroke greater than 6 hours ago: Yes. 17:20 Reassessment: PT SITTING ON BEDSIDE COMMODE ATTEMPTING TO OBTAIN URINE. REFUSED FRIEDMAN. db 18:28 Reassessment: PROVIDED PATIENT FAMILY WITH LAB RESULTS. FAMILY IS REQUESTING TO SPEAK db WITH PHYSICIAN. NOTIFIED PROVIDER AND CHARGE NURSE. 18:32 Reassessment: PT FAMILY REQUESTING LAB RESULTS AND CD FROM RADIOLOGY. REQUESTING TO db SPEAK TO PHYSICIAN. NOTIFIED CHARGE NURSE PROVIDER HAS NOT COME TO SPEAK WITH PATIENT. 18:42 Reassessment: PATIENT FAMILY REQUESTING TO SPEAK WITH PHYSICIAN. STATES WANT TO LEAVE db SO THAT THEY CAN HAVE AN MRI IMMEDIATELY. REQUESTING TO SPEAK TO A PROVIDER ABOUT OPTIONS AND IF A MRI CAN TELL ANYTHING AND CARE FOR FAMILY MEMBER. FAMILY IS WORRIED ABOUT PATIENT MAY HAVE HAD A STROKE AND HAS BEEN HAVING INCREASED STROKE LIKE SYMPTOMS FOR 1 WEEK. CALLED AND SPOKE TO DR. CHRISTIANSON. REPORTS VALERIE WILL COME SPEAK WITH PATIENT FAMILY. 18:54 Reassessment: TABBY PADILLA SPOKE WITH PATIENT AND FAMILY. db 18:54 Reassessment: HELIX COIL WINDER AT PATIENT BEDSIDE. db 20:09 Reassessment: No changes from previously documented assessment. tm6 20:10 Reassessment: report faxed to 4th floor. tm6 Vital Signs: 14:08 BP 148 / 76; Pulse 74; Resp 16; Temp 98.6; Pulse Ox 99% on R/A; iw 14:37 BP 153 / 81; Pulse 72; Resp 16; Pulse Ox 99% on R/A; db 15:16 BP 177 / 88; Pulse 74; Resp 16; Pulse Ox 100% ; bp 16:47 BP 158 / 94; Pulse 72; Resp 16; Pulse Ox 99% ; bp 18:00 BP 159 / 84; Pulse 76; Resp 18; Pulse Ox 95% on R/A; db 20:09 BP 151 / 97; Pulse 70; Temp 98(O); Pulse Ox 99% on R/A; Pain 0/10; tm6 20:09 Pain Scale: Adult tm6 [place] Coma Score: 16:44 Eye Response: spontaneous(4). Motor Response: obeys commands(6). Verbal Response: db oriented(5). Total: 15. 20:26 Eye Response: spontaneous(4). Motor Response: obeys commands(6). Verbal Response: rv oriented(5). Total: 15. NIH Stroke Scale Scores: 16:45 NIHSS Score: 2 db 16:46 NIHSS Score: 0 bp ED Course: 13:37 Patient arrived in ED. rg4 13:43 Melody Plunkett MD is Attending Physician. sp3 14:11 Triage completed. iw 14:13 Arm band placed on. iw 14:20 Parker Brown, RN is Primary Nurse. bp 14:21 Patient placed in an exam room, on a stretcher. ll1 14:35 CT Head Brain wo Cont In Process Unspecified. EDMS 14:43 COVID swab sent to lab. db 14:55 Missed attempt(s): 22 gauge in right antecubital area. Bleeding controlled, band aid db applied, catheter tip intact. 15:07 XRAY Chest (1 view) In Process Unspecified. EDMS 15:15 Basic Metabolic Panel Sent. bp 15:15 CBC with Diff Sent. bp 15:15 LFT's Sent. bp 15:15 Magnesium Sent. bp 15:16 NT PRO-BNP Sent. bp 15:16 PT-INR Sent. bp 15:16 Troponin HS Sent. bp 15:16 Inserted saline lock: 22 gauge in left antecubital area, using aseptic technique. Blood bp collected. 16:56 CT Neck Angio Sent. bp 16:56 CT Head Angio Sent. bp 17:01 CT Head Angio In Process Unspecified. EDMS 17:01 CT Neck Angio In Process Unspecified. EDMS 17:09 Litzy Mclean MD is Hospitalizing Provider. sp3 18:00 Patient has correct armband on for positive identification. Bed in low position. Call db light in reach. Side rails up X 1. Provided Education on: ADMISSION, LABS AND URINE. Client placed on continuous cardiac and pulse oximetry monitoring. NIBP monitoring applied. turfgrass technician on. Pulse ox on. NIBP on. Warm blanket given. 18:00 Urine collected: clean catch specimen, karen colored. db 18:00 No provider procedures requiring assistance completed. db 18:50 Patient admitted, IV remains in place. db 19:01 Report given to INCOMING FREIGHT CLERK RN. db Administered Medications: No medications were administered Medication: 15:06 VIS not applicable for this client. db Outcome: 17:09 Decision to Hospitalize by Provider. sp3 18:00 Admitted to ER Hold. Please see [facility] for further documentation. db 18:00 Instructed on the need for admit, 18:30 Condition: admission doctor Renee contacted about patient wanting to leave AMA. States ll1 he doesn't want to be involved with this patient. ER Doctor should handle it because he's just here for admit patients. 18:37 Condition: Keri, ER director informed of issue with admission doctors. ll1 18:40 Condition: securities vault supervisor, Dewayne informed of issue with Admission doctors. States he ll1 will call Renee himself and get back to us. 20:44 Patient left the ED. rv NIH Stroke Scale - NIH Stroke Score Date: 11/04/2023 Time: 16:45 Total Score = 2 10. Dysarthria (speech clarity - read or repeat words) - 0(Normal) 11. Extinction and Inattention (visual/tactile/auditory/spatial/personal) - 0(No abnormality) 1a. Level of Consciousness (LOC) - 0(Alert) 1b. Level of Consciousness (LOC) (Month \T\ Age) - 0(Both) 1c. LOC Commands (Open \T\ Closes Eyes/Build Automation Engineer) - 0(Both) 2. Best Gaze (Lateral Gaze Paresis) - 0(Normal) 3. Visual Field Loss - 0(No visual loss) 4. Facial Palsy - 2(Partial paralysis) 5a. Left Arm: Motor (10-second hold) - 0(No drift) 5b. Right Arm: Motor (10-second hold) - 0(No drift) 6a. Left Leg: Motor (5-second hold - always test supine) - 0(No drift) 6b. Right Leg: Motor (5-second hold - always test supine) - 0(No drift) 7. Limb Ataxia (finger/nose \T\ heel/babin - test with eyes open) - 0(Absent) 8. Sensory Loss (pinprick arms/legs/face) - 0(Normal) 9. Best Language: Aphasia (description/naming/reading) - 0(No aphasia) Initials: db NIH Stroke Scale - NIH Stroke Score Date: 11/04/2023 Time: 16:46 Total Score = 0 10. Dysarthria (speech clarity - read or repeat words) - 0(Normal) 11. Extinction and Inattention (visual/tactile/auditory/spatial/personal) - 0(No abnormality) 1a. Level of Consciousness (LOC) - 0(Alert) 1b. Level of Consciousness (LOC) (Month \T\ Age) - 0(Both) 1c. LOC Commands (Open \T\ Closes Eyes/Build Automation Engineer) - 0(Both) 2. Best Gaze (Lateral Gaze Paresis) - 0(Normal) 3. Visual Field Loss - 0(No visual loss) 4. Facial Palsy - 0(Normal) 5a. Left Arm: Motor (10-second hold) - 0(No drift) 5b. Right Arm: Motor (10-second hold) - 0(No drift) 6a. Left Leg: Motor (5-second hold - always test supine) - 0(No drift) 6b. Right Leg: Motor (5-second hold - always test supine) - 0(No drift) 7. Limb Ataxia (finger/nose \T\ heel/babin - test with eyes open) - 0(Absent) 8. Sensory Loss (pinprick arms/legs/face) - 0(Normal) 9. Best Language: Aphasia (description/naming/reading) - 0(No aphasia) Initials: bp Signatures: Dispatcher [employer] EDEmmy Ring, RN NAINA iw Ora Benson rg4 Parker Brown RN RN bp Jeff Guerrero RN NAINA rv Jabari Guzman RN RN ll1 Melody Plunkett MD MD sp3 Bev Mathew, RN RN db Violette Covarrubias RN RN tm6 Corrections: (The following items were deleted from the chart) 14:13 14:08 Chief complaint: Spouse and/or significant other states: she sees a neurologist for possible dementia, last night she told me she was not feeling right, is having a harder time with mobility and functional and behavioral decline, has been declining over past 6-8 months, and more acutely there was a change overnight.
--- NOTE | 2023-11-04 17:10 | EDPHYS ---
Physician Documentation [facility] Name: Katie Iglesias Age: 67 yrs Sex: Female : 1955 Arrival Date: 11/04/2023 Time: 13:36 Bed 7 Private MD: ED Physician Melody Plunkett HPI: 11/03 15:17 This 67 yrs old Female presents to ER via Wheelchair with complaints of Altered Mental sp3 Status. 15:17 67-year-old female with history of hypertension, hyperlipidemia, potential early sp3 dementia currently being worked up by Dr. Lazo presents to the ED with her son for chief complaint altered mental status since yesterday evening. Son states that she had a sudden decline in mental status with confusion, altered gait and general decline is also reported by patient's friends who were with her yesterday evening and later confirmed by her son later that same evening. Today patient's son brings her in for evaluation. Patient states that she cannot recall any changes and states that she "feels fine". Patient denies headache, neck pain, chest pain, shortness of breath, syncope, near syncope, or any other signs or symptoms on ROS at this time. She denies any neurological complaints whatsoever. She does state that she feels tired and fatigued otherwise no symptoms.. Historical: - Allergies: 14:11 No Known Allergies; iw - Home Meds: 14:11 lisinopril 40 mg oral tablet daily [Active]; simvastatin 40 mg oral tablet daily iw [Active]; duloxetine 60 mg oral capsule,delayed release (e.c.) daily [Active]; Rexulti 0.5 mg oral tablet daily [Active]; - PMHx: 14:11 Hypercholesterolemia; Hypertensive disorder; iw - PSHx: 14:11 section; L knee replacement; Thyroidectomy; iw - Immunization history:: Adult Immunizations. - Infectious Disease History:: Denies. - Social history:: Smoking status: Patient denies any tobacco usage or history of. ROS: 15:18 Constitutional: Negative for fever, chills, and weight loss, Eyes: Negative for injury, sp3 pain, redness, and discharge, ENT: Negative for injury, pain, and discharge, Neck: Negative for injury, pain, and swelling, Cardiovascular: Negative for chest pain, palpitations, and edema, Respiratory: Negative for shortness of breath, cough, wheezing, and pleuritic chest pain, Abdomen/GI: Negative for abdominal pain, nausea, vomiting, diarrhea, and constipation, Back: Negative for injury and pain, MS/Extremity: Negative for injury and deformity, Skin: Negative for injury, rash, and discoloration, Allergy/Immunology: Negative for hives, rash, and allergies, Endocrine: Negative for neck swelling, polydipsia, polyuria, polyphagia, and marked weight changes, Hematologic/Lymphatic: Negative for swollen nodes, abnormal bleeding, and unusual bruising, 15:18 All other systems are negative, Exam: 15:19 Constitutional: This is a well developed, well nourished patient who is awake, alert, sp3 and in no acute distress. Head/Face: Normocephalic, atraumatic. Eyes: Pupils equal round and reactive to light, extra-ocular motions intact. Lids and lashes normal. Conjunctiva and sclera are non-icteric and not injected. Cornea within normal limits. Periorbital areas with no swelling, redness, or edema. ENT: Nares patent. No nasal discharge, no septal abnormalities noted. External auditory canals are clear. Oropharynx with no redness, swelling, or masses, exudates, or evidence of obstruction, uvula midline. Mucous membranes moist. Neck: Trachea midline, no thyromegaly or masses palpated, and no cervical lymphadenopathy. Supple, full range of motion without nuchal rigidity, or vertebral point tenderness. No Meningismus. Chest/axilla: Normal chest wall appearance and motion. Nontender with no deformity. No lesions are appreciated. Cardiovascular: Regular rate and rhythm with a normal S1 and S2. No gallops, murmurs, or rubs. Normal PMI, no JVD. No pulse deficits. Respiratory: Lungs have equal breath sounds bilaterally, clear to auscultation and percussion. No rales, rhonchi or wheezes noted. No increased work of breathing, no retractions or nasal flaring. Abdomen/GI: Soft, non-tender, with normal bowel sounds. No distension or tympany. No guarding or rebound. No evidence of tenderness throughout. Back: No spinal tenderness. No costovertebral tenderness. Full range of motion. Skin: Warm, dry with normal turgor. Normal color with no rashes, no lesions, and no evidence of cellulitis. MS/ Extremity: Pulses equal, no cyanosis. Neurovascular intact. Full, normal range of motion. Psych: Awake, alert, with orientation to person, place and time. Behavior, mood, and affect are within normal limits. 15:19 Neuro: Patient slightly slow to respond otherwise no neurological defects or abnormalities. NIH stroke scale is 0., 15:31 ECG was reviewed by the Attending Physician. EKG demonstrates normal sinus rhythm at 72 sp3 bpm with normal intervals, normal QRS, normal axis, nonspecific ST's ST segments without evidence of acute ischemia. Vital Signs: 14:08 BP 148 / 76; Pulse 74; Resp 16; Temp 98.6; Pulse Ox 99% on R/A; iw 14:37 BP 153 / 81; Pulse 72; Resp 16; Pulse Ox 99% on R/A; db 15:16 BP 177 / 88; Pulse 74; Resp 16; Pulse Ox 100% ; bp 16:47 BP 158 / 94; Pulse 72; Resp 16; Pulse Ox 99% ; bp 18:00 BP 159 / 84; Pulse 76; Resp 18; Pulse Ox 95% on R/A; db 20:09 BP 151 / 97; Pulse 70; Temp 98(O); Pulse Ox 99% on R/A; Pain 0/10; tm6 20:09 Pain Scale: Adult tm6 NIH Stroke Scale Scores: 16:45 NIHSS Score: 2 db 16:46 NIHSS Score: 0 bp Holladay Coma Score: 16:44 Eye Response: spontaneous(4). Motor Response: obeys commands(6). Verbal Response: db oriented(5). Total: 15. 20:26 Eye Response: spontaneous(4). Motor Response: obeys commands(6). Verbal Response: rv oriented(5). Total: 15. MDM: 14:15 Patient medically screened. sp3 15:19 Data reviewed: vital signs, nurses notes, old medical records, lab test result(s), EKG, sp3 radiologic studies. ED course: 67-year-old female with reports of altered mental status. Differential diagnosis includes dehydration, UTI, pneumonia, viral syndrome, TIA/CVA spectrum, among others. Workup will include CT scan of the head, UA, laboratory values, EKG and general observation and supportive care with disposition pending workup and patient course.. 17:07 Special discussion: Family reports they feel like she is having facial droop off-and-on sp3 which I have not noticed. I have ordered CT angiogram of the head and neck. I spoke to Dr. Staples who suggested we put her in 23 observation and get an MRI in the morning. He is working her up as an outpatient and outpatient MRI has been negative. She has a PET scan scheduled for November 16. UA still pending and we will place a Brown. Patient will be admitted to the hospitalist service at this time.. 11/03 14:16 Order name: Basic Metabolic Panel; Complete Time: 16:05 sp3 11/03 14:16 Order name: CBC with Diff; Complete Time: 16: sp3 11/03 14:16 Order name: LFT's; Complete Time: 16:05 sp3 11/03 14:16 Order name: Magnesium; Complete Time: 16:05 sp3 11/03 14:16 Order name: NT PRO-BNP; Complete Time: 16:05 sp3 11/03 14:16 Order name: PT-INR; Complete Time: 16:05 sp3 11/03 14:16 Order name: Troponin HS; Complete Time: 16:05 sp3 11/03 14:49 Order name: UAM; Complete Time: 19:49 sp3 11/03 18:14 Order name: Alcohol Serum/Plasma EDMS 11/03 18:14 Order name: Ammonia EDMS 11/03 18:14 Order name: Urine Drug Screen EDMD 11/03 18:14 Order name: Cortisol EDMS 11/03 18:14 Order name: Thyroid Stimulating Hormone EDMS 11/03 18:14 Order name: CBC with Automated Diff EDMS 11/03 18:14 Order name: CBC with Automated Diff EDMS 11/03 18:14 Order name: Comprehensive Metabolic Panel EDMS 11/03 18:14 Order name: Comprehensive Metabolic Panel EDMS 11/03 18:14 Order name: Lipid Profile EDMS 11/03 18:14 Order name: Lipid Profile EDMS 11/03 18:14 Order name: Magnesium EDMS 11/03 18:14 Order name: Magnesium EDMS 11/03 18:14 Order name: Phosphorus EDMS 11/03 18:14 Order name: Phosphorus EDMS 11/03 18:16 Order name: Thyroid Peroxidase Antibodies EDMS 11/03 14:16 Order name: XRAY Chest (1 view); Complete Time: 16:47 sp3 11/03 14:16 Order name: CT Head Brain wo Cont; Complete Time: 16:05 sp3 11/03 16:44 Order name: CT Head Angio; Complete Time: 18:02 db 11/03 16:44 Order name: CT Neck Angio; Complete Time: 18:02 db 11/03 18:14 Order name: Brain Wo Cont EDMS 11/03 14:16 Order name: EKG; Complete Time: 14:16 sp3 11/03 14:16 Order name: Cardiac monitoring; Complete Time: 15:00 sp3 11/03 14:16 Order name: EKG - Nurse/Tech; Complete Time: 15:00 sp3 11/03 14:16 Order name: IV Saline Lock; Complete Time: 15:16 sp3 11/03 14:16 Order name: Labs collected and sent; Complete Time: 15:16 sp3 11/03 14:16 Order name: O2 Per Protocol; Complete Time: 15:00 sp3 11/03 14:16 Order name: O2 Sat Monitoring; Complete Time: 15:00 sp3 Administered Medications: No medications were administered Disposition Summary: 11/04/23 17:09 Hospitalization Ordered Notes: Hospitalization Status: Observation sp3 Provider: Litzy Mclean sp3 Location: Telemetry/MedSurg (observation) sp3 Condition: Stable sp3 Problem: an acute exacerbation sp3 Symptoms: have worsened sp3 Bed/Room Type: Standard 3 Room Assignment: 423(11/04/23 19:44) wm Diagnosis - Altered mental status sp3 Forms: - Medication Reconciliation Form sp3 - SBAR form sp3 - Leadership Thank You Letter sp3 NIH Stroke Scale - NIH Stroke Score Date: 11/04/2023 Time: 16:45 Total Score = 2 10. Dysarthria (speech clarity - read or repeat words) - 0(Normal) 11. Extinction and Inattention (visual/tactile/auditory/spatial/personal) - 0(No abnormality) 1a. Level of Consciousness (LOC) - 0(Alert) 1b. Level of Consciousness (LOC) (Month \\T\\ Age) - 0(Both) 1c. LOC Commands (Open \\T\\ Closes Eyes/Microcomputer Technician) - 0(Both) 2. Best Gaze (Lateral Gaze Paresis) - 0(Normal) 3. Visual Field Loss - 0(No visual loss) 4. Facial Palsy - 2(Partial paralysis) 5a. Left Arm: Motor (10-second hold) - 0(No drift) 5b. Right Arm: Motor (10-second hold) - 0(No drift) 6a. Left Leg: Motor (5-second hold - always test supine) - 0(No drift) 6b. Right Leg: Motor (5-second hold - always test supine) - 0(No drift) 7. Limb Ataxia (finger/nose \\T\\ heel/babin - test with eyes open) - 0(Absent) 8. Sensory Loss (pinprick arms/legs/face) - 0(Normal) 9. Best Language: Aphasia (description/naming/reading) - 0(No aphasia) Initials: db NIH Stroke Scale - NIH Stroke Score Date: 11/04/2023 Time: 16:46 Total Score = 0 10. Dysarthria (speech clarity - read or repeat words) - 0(Normal) 11. Extinction and Inattention (visual/tactile/auditory/spatial/personal) - 0(No abnormality) 1a. Level of Consciousness (LOC) - 0(Alert) 1b. Level of Consciousness (LOC) (Month \\T\\ Age) - 0(Both) 1c. LOC Commands (Open \\T\\ Closes Eyes/Microcomputer Technician) - 0(Both) 2. Best Gaze (Lateral Gaze Paresis) - 0(Normal) 3. Visual Field Loss - 0(No visual loss) 4. Facial Palsy - 0(Normal) 5a. Left Arm: Motor (10-second hold) - 0(No drift) 5b. Right Arm: Motor (10-second hold) - 0(No drift) 6a. Left Leg: Motor (5-second hold - always test supine) - 0(No drift) 6b. Right Leg: Motor (5-second hold - always test supine) - 0(No drift) 7. Limb Ataxia (finger/nose \\T\\ heel/babin - test with eyes open) - 0(Absent) 8. Sensory Loss (pinprick arms/legs/face) - 0(Normal) 9. Best Language: Aphasia (description/naming/reading) - 0(No aphasia) Initials: bp Signatures: Dispatcher [employer] EDJoslyn Weinstein FNP-C LIGHTING ADVISER-Csnw Emmy Ryder, RN RN iw Mariann Alexandre wm Melody Plunkett MD MD sp3 Mike Gonzalez MD MD rt Corrections: (The following items were deleted from the chart) 14:17 14:16 BASIC METABOLIC PANEL+C.LAB.BRZ ordered. EDMS EDMS 14:17 14:16 CBC+H.LAB.BRZ ordered. EDMS EDMS 14:17 14:16 HEPATIC FUNCTION+C.LAB.BRZ ordered. EDMS EDMS 14:17 14:16 MAGNESIUM+C.LAB.BRZ ordered. EDMS EDMS 14:17 14:16 PROBNP+C.LAB.BRZ ordered. EDMS EDMS 14:17 14:16 PROTIME (+INR)+COAG.LAB.BRZ ordered. EDMS EDMS 14:17 14:16 Troponin High Sensitivity+C.LAB.BRZ ordered. EDMS EDMS 17:55 17:07 Brown ordered. sp3 bp 19:44 17:09 sp3 wm
--- NOTE | 2023-11-04 17:45 | RAD REPORT ---
EXAM DESCRIPTION: CT - Head angio - 11/04/2023 4:59 pm CLINICAL HISTORY: MENTAL STATUS CHANGE COMPARISON: Head Brain Wo Cont dated 11/04/2023; Facial Bones W/ Mpr dated 03/01/2023; Neck Angio date d 11/04/2023 TECHNIQUE: Axial CT angiography images of the head was performed with multiplanar and maximum intens ity projection reconstructions. Images performed following intravenous administration of iodinated co ntrast. All CT scans are performed using dose optimization technique as appropriate and may include automated exposure control or mA/KV adjustment according to patient size. FINDINGS: Diminutive appearance of the right A2 segment. Diminutive appearance of the right intradur al vertebral artery, essentially terminating at the right PICA. These appear to be developmental vari ants. configuration of the posterior circulation, with small caliber of the basilar artery and right more than left P1 segments, with patent bilateral posterior communicating arteries. No evidence of large vessel occlusion. No evidence of aneurysm or dissection flap is detected. No rosa m w-limiting stenosis or vascular malformation identified. Antegrade flow is seen in the vertebral arteries. The visualized dural venous sinuses are grossly patent. IMPRESSION: No evidence of large vessel occlusion or flow-limiting stenosis. Variant anatomy as abov e.
--- NOTE | 2023-11-04 17:59 | RAD REPORT ---
EXAM DESCRIPTION: CT - Neck Angio - 11/04/2023 4:59 pm CLINICAL HISTORY: AMS COMPARISON: No comparisons TECHNIQUE: Axial CT angiography images of the neck was performed with multiplanar and maximum intens ity projection reconstructions. Images performed following intravenous administration of iodinated co ntrast. All CT scans are performed using dose optimization technique as appropriate and may include automated exposure control or mA/KV adjustment according to patient size. Quantification of carotid stenosis, if any, is performed according to NASCET criteria. FINDINGS: A left aortic arch is identified with normal three vessel configuration of the great vesse ls. No significant flow abnormality is seen of the common carotid bilaterally. No significant stenosis is identified involving the cervical segments of both internal carotid arteri es. Mild tortuosity of the carotid arteries bilaterally. Normal flow is seen within both vertebral arteries. Enlarged right thyroid lobe with small heterogeneous nodules, not exceeding 1 cm. IMPRESSION: No significant flow abnormality of the neck vessels is identified. Incidentally noted multiple right thyroid nodules, which may deserve additional evaluation by [facility] ed thyroid ultrasound on outpatient basis. CAROTID STENOSIS REFERENCE USING NASCET CRITERIA: % ICA stenosis = (1 - narrowest ICA diameter/diameter of distal cervical ICA) x 100. Mild - <50% stenosis. Moderate - 50-69% stenosis. Severe - 70-94% stenosis. Near occlusion - 95-99% stenosis. Occluded - 100% stenosis.
[2023-11-04 18:19] LABS: Specific Gravity 1.027 (1.005-1.030); Sqamous Epithelial <5 /HPF (None Seen); Urine Bacteria <20 /HPF (<20); Urine Bilirubin NEGATIVE (Negative); Urine Blood Negative (Negative); Urine Clarity Turbid (Clear); Urine Color Light-Yellow (Yellow); Urine Crystals Unidentified Few /HPF (None Seen); Urine Culture Reflex Order NOT NEEDED; Urine Glucose NEGATIVE (Negative); Urine Ketones NEGATIVE (Negative); Urine Micro Reflex YN NO BILL MICROSCOPIC; Urine Mucus Slight /HPF (None Seen); Urine Nitrite NEGATIVE (Negative); Urine Protein NEGATIVE (Negative); Urine RBC <5 /HPF (None Seen); Urine Urobilinogen Normal (Normal); Urine WBC <5 /HPF (<5); Urine Yeast (Budding) Trace /HPF (None Seen); Urine pH 5.5 (5.0-7.0)
--- NOTE | 2023-11-04 18:28 | P.HP ---
Certification for Inpatient Patient admitted to: Observation With expected LOS: <2 Midnights Patient will require the following post-hospital care: None Practitioner: I am a practitioner with admitting privileges, knowledge of patient current condition, hospital course, and medical plan of care. Services: Services provided to patient in accordance with Admission requirements found in Title 42 Section 412.3 of the Code of Federal Regulations <Joslyn Charles - Last Filed: 11/04/23 19:52> Patient History Date of Service: 11/04/23 Primary Care Provider: Sarah. Has seen Dr. Staples Reason for admission: AMS History of Present Illness: is a 67-year-old female with a past medical history of hypertension, hyperlipidemia, depression who has been having periods of confusion and ataxia per her family. She followed up with Dr. Staples and had a normal exam, NIH score of 0, and a MRI of the brain that was normal. The family called Dr. Staples's office with concern for repeated episodes of ataxia and altered mental status after his evaluation. He directed them to bring her to the emergency department. He has a PET scan of her brain ordered for November 16 and a follow-up in his office for the same week. On exam in the emergency department the emergency room physician found her to have a normal exam, NIH scale of 0, and spoke with Dr. Staples regarding plan. It was agreed that she would be admitted for observation and evaluation of vessels of the head and neck. Her labs are unremarkable, CT head impression "stable prominence of the ventricular caliber relative to the sulcus in findings may relate to centrally predominant volume loss or normal pressure hydrocephalus."," No acute intracranial process." CT angio of the head and neck impression is "no evidence of large vessel occlusion or flow-limiting stenosis... "No significant flow abnormality of the neck vessels is identified. Incidentally noted multiple right thyroid nodules, which may deserve additional evaluation by dedicated thyroid ultrasound on outpatient basis. " We will observe Ms. Iglesias in the hospital and await MRI of the brain tomorrow morning Home medications list reviewed: Yes (Rexulti, Duloxetine DR, simvastatin, lisinopril, ) - Past Medical/Surgical History Has patient received pneumonia vaccine in the past: Yes Diabetic: No -: HTN -: HLD -: Thyroid nodules -: Knee problems -: anxiety/depression -: partial thyroidectomy -: right knee surgery Psychosocial/ Personal History: Here with Sons who are very concerned re: pt's intermittent symptoms. Pt's 5 years ago. - Family History Family History: Reviewed- Non-Contributory - Social History Smoking Status: Unknown if ever smoked Alcohol use: No CD- Drugs: No Caffeine use: Yes Place of Residence: Home <Joslyn Charles - Last Filed: 11/04/23 19:52> Date of Service: 11/05/23 <daren samayoa - Last Filed: 11/05/23 06:55> Review of Systems 10-point ROS is otherwise unremarkable General: Weakness Neurological: Weakness, As per HPI <Joslyn Charles - Last Filed: 11/04/23 19:52> Physical Examination - Physical Exam General: Alert, Oriented x3, Cooperative, Obese HEENT: Atraumatic, Normocephalic, Other (mild exopthalmus) Neck: Supple, JVD not distended Respiratory: Clear to auscultation bilaterally Cardiovascular: Regular rate/rhythm, Normal S1 S2, Edema (mild pedal edema) Capillary refill: <2 Seconds Gastrointestinal: Soft and benign, Other (trunchal obesity) Musculoskeletal: No clubbing, Other (bilateral knees mildly swollen) Integumentary: No rashes Neurological: Normal speech, Abnormal tone Lymphatics: No axilla or inguinal lymphadenopathy External genitalia: Deferred Rectal: Deferred - Studies Laboratory Data (last 24 hrs) 11/04/23 11/04/23 11/04/23 15:15 15:15 15:15 WBC 10.50 Hgb 13.4 Hct 39.6 Plt Count 215 PT 11.8 INR 1.07 Sodium 135 L Potassium 3.7 BUN 12 Creatinine 1.29 H Glucose 121 H Magnesium 1.8 Total Bilirubin 1.0 AST 16 ALT 23 Alkaline Phosphatase 93 <Joslyn Charles - Last Filed: 11/04/23 19:52> - Studies Laboratory Data (last 24 hrs) 11/04/23 11/04/23 11/04/23 15:15 15:15 15:15 WBC 10.50 Hgb 13.4 Hct 39.6 Plt Count 215 PT 11.8 INR 1.07 Sodium 135 L Potassium 3.7 BUN 12 Creatinine 1.29 H Glucose 121 H Magnesium 1.8 Total Bilirubin 1.0 AST 16 ALT 23 Alkaline Phosphatase 93 <daren samayoa - Last Filed: 11/05/23 06:55> Assessment and Plan - Plan Fatigue and malaise/weakness/AMS Electrolytes normal in ED, monitor and trend check cortisol, TSH, thyroid peroxidase, PTH, Ammonia, UDS, Vit D, Vit B12, HgbA1c Adrenal eval per CT abd without contrast CT head/CT angio head and neck negative from ED Neurochecks Q4h MRI brain - stroke protocol Dr. Staples following outpatient - PET scan 11/17/23 HTN Lisinopril Monitor and trend HLD Lipid profile in am Simvastatin Mild hyponatremia Hold Duloxetine Hold Rexulti (side effects?) DVT/GI prophylaxis Lovenox Protonix - Advance Directives Does patient have a Living Will: No Does patient have a Durable POA for Healthcare: No - Code Status/Comfort Care Code Status: Full Code <Joslyn Charles - Last Filed: 11/04/23 19:52> - Plan Patient seen and examined. Plan of care discussed with Ms. Charles. Subsequent history: Family reported patient has been experiencing progressive gait disturbance followed by a sudden inability to walk yesterday, associated left facial droop. Family also reported history of urine incontinence. He has been following Dr. Staples neurology who is evaluating her gait disturbance and cognitive impairment. MRI of the brain x 2 noted patient has ventriculomegaly suspected to be related to atrophy versus normal pressure hydrocephalus. MRI of the brain done yesterday showed no acute CVA. Neurology Dr. Staples consulted <daren samayoa - Last Filed: 11/05/23 06:55>
--- NOTE | 2023-11-04 20:54 | RAD REPORT ---
EXAM DESCRIPTION: MRI - Brain Wo Cont - 11/04/2023 7:43 pm CLINICAL HISTORY: AMS COMPARISON: 11/04/[address] 09/17/2023 brain MRI TECHNIQUE: Multiplanar multisequence MRI of the brain performed without IV contrast. FINDINGS: No evidence of acute infarct or other diffusion signal abnormality. No evidence of acute intracranial hemorrhage or abnormal extra-axial fluid collections. Stable ventricular caliber with disproportionate prominence of the ventricles relative to the sulci. Right peritrigonal volume loss again seen. Midline structures are unremarkable. Scattered subcortical and deep white matter T2/FLAIR hyperintensities, nonspecific, and stable in ext ent, most suggestive of chronic small vessel ischemic changes. No mass effect or midline shift. Major vascular flow voids are preserved. Patchy opacification of bilateral mastoid middle air cells, stable. Generalized paranasal sinuses are well aerated IMPRESSION: No acute intracranial process. Stable ventriculomegaly which may relate to centrally predominant volume loss or normal pressure hydr ocephalus, please correlate for clinical features of normal pressure hydrocephalus. Stable mild periventricular deep white matter T2 hyperintensities, nonspecific, but most suggestive o f chronic small vessel ischemic changes.
--- NOTE | 2023-11-04 21:04 | RAD REPORT ---
EXAM DESCRIPTION: CT - Abdomen Wo Contrast - 11/04/2023 8:08 pm CLINICAL HISTORY: assess adrenals COMPARISON: No comparisons TECHNIQUE: Thin cut axial CT imaging of the abdomen was performed without IV contrast. Multiplanar r eformats were generated and reviewed. All CT scans are performed using dose optimization technique as appropriate and may include automated exposure control or mA/KV adjustment according to patient size. FINDINGS: No suspicious findings in the lung bases. The liver, spleen, adrenal glands, and pancreas show no suspicious findings. Gallbladder and biliary tree are also without suspicious finding. Symmetric renal contour, without suspicious parenchymal findings within limits of noncontrast techniq ue. No evidence of hydroureteronephrosis. Excreted contrast along the renal collecting systems limits evaluation for calculi. No dilated bowel loops or bowel wall thickening. No free air, free fluid or inflammatory stranding. N o hernia, mass or bulky lymphadenopathy. No suspicious bony findings. IMPRESSION: No acute intra-abdominal process. No suspicious masses with attention to the adrenal gla nds.
[2023-11-04] MEDS: ENOXAPARIN 40 MG/0.4 ML SQ SCH (22:01)
[2023-11-05 01:47] LABS: Absolute Basophils 0.1 K/uL (0-0.5); Absolute Eosinophils 0.1 K/uL (0-0.5); Absolute Lymphocytes (CBC) 2.1 K/uL (0.7-4.9); Absolute Monocytes 0.9 K/uL (0.1-1.3); Basophils % 0.6 % (0-1.3); Eosinophils % 0.9 % (0-4.4); Hematocrit 35.3 % (36.0-45.0); Hemoglobin 11.8 g/dL (12.0-15.0); Lymphocytes % 22.6 % (15.3-44.8); MCH 29.9 pg (27.0-35.0); MCHC 33.5 g/dL (32.0-36.0); MCV 89.2 fL (80-100); MPV 8.3 fL (7.6-11.3); Monocytes % 10.3 % (3.3-12.3); Neutrophils % 65.6 % (41.7-73.7); Nucleated Red Blood Cells % 0.1 % (0-0); Platelets 182 thou/uL (152-406); RBC Red Blood Cell Count 3.96 M/uL (3.86-4.86)
[2023-11-05 02:26] LABS: Albumin 3.1 g/dL (3.4-5.0); Anion Gap 6.3 mEq/L (5.0-15.0); Bilirubin Total 0.6 mg/dL (0.2-1.0); Globulin 3.1 g/dL (2.3-3.5); Magnesium 1.8 mg/dL (1.6-2.4); Phosphorus 3.5 mg/dL (2.5-4.9); Potassium 3.3 mEq/L (3.5-5.1); Protein, Total 6.2 g/dL (6.4-8.2); Thyroid Stimulating Hormone 1.2 uIU/mL (0.358-3.740)
[2023-11-05] MEDS: PANTOPRAZOLE 40MG TABLET PO SCH (05:57)
[2023-11-05] MEDS: MAGNESIUM SULFATE 1 gm IVPB 1 GM/100 ML BAG IV ONE (07:00)
[2023-11-05 07:11] LABS: Barbiturates NEGATIVE (NEGATIVE); Benzodiazepines NEGATIVE (NEGATIVE); Cocaine NEGATIVE (NEGATIVE); METHAMPHETAM NEGATIVE (NEGATIVE); Methadone NEGATIVE (NEGATIVE); Opiates NEGATIVE (NEGATIVE); Phencyclidine NEGATIVE (NEGATIVE); THC Cannibis NEGATIVE (NEGATIVE)
[2023-11-05] MEDS: POTASSIUM CL SA 10 MEQ TAB PO ONE (08:17)
[2023-11-05] MEDS ORDERED: FOLIC ACID 5 MG/ML VIAL IVP SCH (09:00)
[2023-11-05] MEDS: FOLIC ACID 1 MG in NA CHLORIDE 0.9% 50 ML IV SCH (09:00)
[2023-11-05] MEDS: lisinopriL 20 MG TAB PO SCH (09:22)
[2023-11-05] MEDS: dexAMETHasone 10 MG/ML VIAL IV ONE (09:52)
--- NOTE | 2023-11-05 20:03 | P.PN ---
Subjective Date of Service: 11/05/23 Primary Care Provider: Sarah. Has seen Dr. Staples Chief Complaint: AMS Subjective: Improving (up with minimal assist to WC and to bathroom. States she is feeling better.) <Joslyn Charles - Last Filed: 11/05/23 19:58> Date of Service: 11/05/23 <Litzy Mclean C - Last Filed: 11/05/23 21:59> Review of Systems 10-point ROS is otherwise unremarkable General: Weakness, As per HPI Genitourinary: As per HPI Neurological: As per HPI <Joslyn Charles - Last Filed: 11/05/23 19:58> Physical Examination - Vital Signs Temperature: 98.6 F Blood Pressure: 122/65 Pulse: 73 Respirations: 18 Pulse Ox (%): 97 - Physical Exam General: Alert, Oriented x3 HEENT: Atraumatic, Normocephalic Neck: Supple Respiratory: Normal air movement Cardiovascular: Regular rate/rhythm Capillary refill: <2 Seconds Gastrointestinal: Soft and benign Musculoskeletal: No clubbing, No swelling Integumentary: No rashes Neurological: Normal tone, Normal affect Lymphatics: No axilla or inguinal lymphadenopathy External genitalia: Deferred Rectal: Deferred <Joslyn Charles - Last Filed: 11/05/23 19:58> Assessment And Plan - Plan Fatigue and malaise/weakness/AMS Electrolytes normal in ED, monitor and trend check cortisol, TSH, thyroid peroxidase, PTH, Ammonia, UDS, Vit D, Vit B12, HgbA1c Adrenal eval per CT abd without contrast CT head/CT angio head and neck negative from ED Neurochecks Q4h MRI brain - stroke protocol Dr. Staples following outpatient - PET scan 11/17/23, awaiting neuro eval HTN Lisinopril Monitor and trend HLD Lipid profile in am Simvastatin Mild hyponatremia Hold Duloxetine Hold Rexulti (side effects?) DVT/GI prophylaxis Lovenox Protonix <Joslyn Charles - Last Filed: 11/05/23 19:58> - Plan Pt seen and examined. I agree with the note by the MELTING FURNACE SKIMMER. Pt has ataxia, urinary incontinence and confusion. It is concerning for NPH. Will discuss withe Neurologist. <Litzy Mclean C - Last Filed: 11/05/23 21:59>
[2023-11-05] MEDS: ATORVASTATIN 20 MG TAB PO SCH (22:21)
--- NOTE | 2023-11-05 23:17 | CON ---
Date of Consultation: 11/05/2023 Time: 1839 Reason: Gait difficulties, memory problems. History: A 67-year-old lady who was here in the office a few times. She was getting a workup for memory problems subacute. Her kids are involved. Her 2 sons are involved with her care, but they have jobs of there on as well and patient lives alone. Her and she is depressed about that, complicating the issue. Her last MMSE was 24, although effort was somewhat questionable I thought. Her initial MRI was unremarkable. There is some atrophy. The ventricles are generous, but they were generous on a CT scan from over a year ago as well and she did not really have incontinence or gait difficulties until yesterday, which has what prompted her admission. She was just unable walk and she was confused and family thought maybe she had some facial weakness and they contacted my office, and given the abrupt change in the neurologic status, I thought it would be most prudent to have the patient evaluated in the emergency department, so she came to the emergency department. CT scan of the brain negative. CT angiogram head and neck, no large vessel occlusion. Urinalysis normal. Standard labs normal. Creatinine a little elevated, 1.2. Lipids, LDL 71. B12 of 240. TSH 1.2. Parathyroid 9.7. She is getting cosyntropin stim test right now with some cortisol levels serially pending after dexamethasone. Brain MRI: No stroke. Ventricles are still generous, not really different than the one done less than 6 weeks ago. We had a PET scan of the brain, pending. Her additional labs were unremarkable. The serum amyloid was equivocal between 0.15 and 0.18. She is better today. She can walk, although her walking certainly is not normal. She is able walk with just standby assist, although she does better with a walker. The gait is still a little shuffling with small steps raising the real possibility of NPH. Consult requested. Past Medical History: Depression, hyperlipidemia. Medications: Duloxetine, simvastatin, lisinopril. She also is taking some Rexulti. She has just been examples of that. She thinks maybe she might have taken an extra dose; forgot, double dose. It is not 100% clear. Allergies: NONE. Social History: As alluded to. Lives alone. Normally independent with activities of daily living. She is still driving and paying her bills, etc. Review of Systems: General: Good health. Eyes: Negative. Ears, Nose, Throat: Negative. Cardiovascular: Hypertension. Pulmonary: Negative. GI: Negative. : Negative. Musculoskeletal: Negative. Neurologic: As noted. Psychiatric: As noted. Endocrine: Negative. Hematologic: Negative. Physical Examination: Vital Signs: 98.6, 73, 18, 122/65. General: Pleasant heavyset lady sitting in bed, in no distress. She is very outgoing and gregarious. Pleasant, not hostile, not confused. HEENT: Pupils are reactive. Ocular motion full. Visual field full. Facial strength and sensation normal. Tongue protrudes evenly. Soft palate elevates symmetrically bilaterally. Neurologic: Extremity strength full. Sensation decreased to vibration in her feet. Reflexes are trace to 1/4 throughout. Toes are downgoing. Cerebellar exam demonstrates no ataxia. Gait as alluded to. It is slightly shuffling with a little bit of stutter stepping. There is no tremor or bradykinesia or cogwheeling to suggest Parkinson's or severe extrapyramidal symptoms from medication overuse. Laboratory Data: Drug screen was equally negative/normal. Impression: 1. Ataxia, improving. 2. Hydrocephalus, chronicity unclear. 3. Memory loss. Plan: We had a very prolonged discussion regarding the possibility of NPH and how that may play into the workup that is ongoing for patients possible dementia. She has a PET scan scheduled for early November, would keep that appointment. With regard to the NPH, the patient does not want to have a lumbar puncture, which would be the next step in sorting through that. So, I suggested that we get the PET-CT, and if that is normal, then we will have a more detailed discussion regarding the necessity of CSF analysis, which seems like maybe necessary as you do not want just put a shunt in everybody with enlarged ventricles and forgetfulness. With regard to the gait failure proper, we will order an MRI cervical spine. If walking continues to improve as dramatically from yesterday to today that could possibly be done as an outpatient, but if continues to struggle, it will have to be done on Wednesday to evaluate for subacute spinal cord compression and compressive myelopathy and possible occult spinal cord injury from a fall, which did happen. With regard to disposition, we will try and get home health involved as outpatient. She lives alone. Her children cannot be with her all the time. So, I think we are going to need some kind of bridge. We will put in a consult as well for inpatient rehab, but as I reviewed with the family and the patient that probably will not happen until Wednesday. We will just have to see if the patient improves and can go home or have these things done expeditiously as outpatient or if she has to stay until Wednesday. Thank you for the consult. She can follow up in my office. She does not have an appointment until November, but obviously after this hospitalization, we will be happy to see here next week if home health care needs to be set up as outpatient. ASAD Voice ID: [id number] Report ID: [id number] NOEL
[2023-11-06 06:15] LABS: Absolute Monocytes 0.9 K/uL (0.1-1.3); Absolute Neutrophil 6.7 K/uL (1.8-8.0); Basophils % 0.2 % (0-1.3); Hematocrit 35.7 % (36.0-45.0); Lymphocytes % 11.9 % (15.3-44.8); MCH 29.8 pg (27.0-35.0); MCHC 33.6 g/dL (32.0-36.0); MCV 88.7 fL (80-100); MPV 8.9 fL (7.6-11.3); Monocytes % 9.9 % (3.3-12.3); Platelets 198 thou/uL (152-406); RBC Red Blood Cell Count 4.02 M/uL (3.86-4.86); Red Cell Distribution Width 13.8 % (12.1-15.2)
[2023-11-06 06:26] LABS: Anion Gap 9.1 mEq/L (5.0-15.0); Magnesium 2.1 mg/dL (1.6-2.4); Potassium 4.1 mEq/L (3.5-5.1)
--- NOTE | 2023-11-06 09:10 | P.PN ---
Subjective Date of Service: 11/06/23 Primary Care Provider: Sarah. Has seen Dr. Staples Chief Complaint: AMS Subjective: No new changes (Alert, mostly oriented, states that she thought her Sons brought her on a vacation. Just realized she is in the hospital. States she doesn't know what has been happening. When reminded of how she came to be here she says she remembers but it doesn't seem to fit with what she knows. She is tearful), Other (States she misses her of 41yrs, Abdelrahman. Inquired as to grief causing all her symptoms. She states she likes Dr. Uli Kasper and will go back to him re: grieving) <Joslyn Charles - Last Filed: 11/06/23 09:15> Date of Service: 11/06/23 <Litzy Mclean - Last Filed: 11/06/23 13:26> Review of Systems 10-point ROS is otherwise unremarkable General: As per HPI Musculoskeletal: As per HPI Neurological: As per HPI <Joslyn Charles - Last Filed: 11/06/23 09:15> Physical Examination - Vital Signs Temperature: 97.4 F Blood Pressure: 135/85 Pulse: 64 Respirations: 18 Pulse Ox (%): 99 - Physical Exam General: Alert, Cooperative, Disheveled HEENT: Atraumatic, Normocephalic Neck: Supple Respiratory: Normal air movement Cardiovascular: Normal pulses Capillary refill: <2 Seconds Gastrointestinal: Soft and benign Musculoskeletal: No clubbing Integumentary: No rashes Neurological: Normal speech, Normal tone, Normal affect, Other (repetitive and slow to realize we have had the same conversations) Lymphatics: No axilla or inguinal lymphadenopathy External genitalia: Deferred Rectal: Deferred <Joslyn Charles - Last Filed: 11/06/23 09:15> - Studies Laboratory Data (last 24 hrs) 11/06/23 11/06/23 05:30 05:30 WBC 8.60 Hgb 12.0 Hct 35.7 L Plt Count 198 Sodium 138 Potassium 4.1 BUN 21 H Creatinine 1.24 H Glucose 185 H Magnesium 2.1 <Litzy Mclean - Last Filed: 11/06/23 13:26> Assessment And Plan - Plan Fatigue and malaise/weakness/AMS Electrolytes normal in ED, monitor and trend check cortisol, TSH, thyroid peroxidase, PTH, Ammonia, UDS, Vit D, Vit B12, HgbA1c Adrenal eval per CT abd without contrast - negative 11/04 CT head/CT angio head and neck negative from ED Neurochecks Q4h MRI brain - questionable NPH? Dr. Staples following outpatient - PET scan 11/17/23, awaiting neuro eval HTN Lisinopril Monitor and trend HLD Lipid profile in am Simvastatin Mild hyponatremia - resolved Hold Duloxetine Hold Rexulti (side effects?) DVT/GI prophylaxis Lovenox Protonix <Joslyn Charles - Last Filed: 11/06/23 09:15> - Plan Pt seen and examined. I agree withe the note by the STORAGE BRINE WORKER. Pt was crying because her son made her upset. Her son's want to make sure that she is safe. Waiting for PT eval. The Neurologist want pt to do MRI cervical spine before the schedu led PET scan. Pt refused LP. <Litzy Mclean - Last Filed: 11/06/23 13:26>
[2023-11-06] MEDS: MELATONIN 3 MG TABLET PO PRN (21:11)
--- NOTE | 2023-11-07 11:01 | P.PN ---
Subjective Date of Service: 11/07/23 Primary Care Provider: Sarah. Has seen Dr. Staples Chief Complaint: AMS Subjective: No new changes (overnight pt had to be calmed and was agitated because she had not rec'd Immodium. I spoke with the pt this am and asked specifically about diarrhea. She said, "no, just yesterday morning.") <Hue Charlesy Sagar - Last Filed: 11/07/23 10:56> Date of Service: 11/07/23 <Litzy Mclean C - Last Filed: 11/07/23 12:46> Review of Systems 10-point ROS is otherwise unremarkable General: As per HPI Gastrointestinal: As per HPI Genitourinary: As per HPI Musculoskeletal: As per HPI Neurological: As per HPI <Joslyn Charles - Last Filed: 11/07/23 10:56> Physical Examination - Vital Signs Temperature: 96.9 F Blood Pressure: 143/69 Pulse: 55 Respirations: 16 Pulse Ox (%): 98 - Physical Exam General: Alert, In no apparent distress, Oriented x3 HEENT: Atraumatic, Normocephalic Neck: Supple Respiratory: Normal air movement Cardiovascular: Normal pulses, Regular rate/rhythm Capillary refill: <2 Seconds Gastrointestinal: Soft and benign Musculoskeletal: No clubbing, No swelling Integumentary: No rashes Neurological: Normal speech, Normal affect, Abnormal tone Lymphatics: No axilla or inguinal lymphadenopathy External genitalia: Deferred Rectal: Deferred <Hue Charlesy Sagar - Last Filed: 11/07/23 10:56> Assessment And Plan - Plan Fatigue and malaise/weakness/AMS Electrolytes normal in ED, monitor and trend checked repeated cortisol, TSH, thyroid peroxidase, PTH, Ammonia, UDS, Vit D, Vit B12, HgbA1c Adrenal eval per CT abd without contrast - negative 11/04 CT head/CT angio head and neck negative from ED Neurochecks Q4h MRI brain - questionable NPH? Dr. Staples following outpatient - PET scan 11/17/2311/05 Dr. Staples discussed plan for MRI c-spine, pt declines LP 11/06 feeling better per report. Slept from 3am to 7am. Refused daily labs today HTN Lisinopril Monitor and trend HLD Simvastatin Mild hyponatremia - resolved Hold Duloxetine Hold Rexulti (side effects?) DVT/GI prophylaxis Lovenox Protonix <Joslyn Charles - Last Filed: 11/07/23 10:56> - Plan Pt seen and examined. I agree with the note by the CARBON BLOCKS PRESS OPERATOR. Pt is eager to go home. Waiting for MRI cervical spine. She refused LP. Will continue PT. Her kids want SNF or rehab placement but pt does not want placement. <Litzy Mclean - Last Filed: 11/07/23 12:46>
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
--- NOTE | 2023-11-08 08:51 | P.PN ---
Subjective Date of Service: 11/08/23 Primary Care Provider: Sarah. Has seen Dr. Staples Chief Complaint: AMS Admitted for ataxia MRI of the C-spine ordered11/07 prior MRI suggestive of normal pressure hydrocephalus cephalas Plan to discharge to acute inpatient rehab pending bed availability/author ization - Physical Exam General: Alert, In no apparent distress, Oriented x3 HEENT: Atraumatic, Normocephalic Neck: Supple Respiratory: Normal air movement Cardiovascular: Normal pulses, Regular rate/rhythm Capillary refill: <2 Seconds Gastrointestinal: Soft and benign Musculoskeletal: No clubbing, No swelling Integumentary: No rashes Neurological: Normal speech, Normal affect, Abnormal tone Lymphatics: No axilla or inguinal lymphadenopathy Review of Systems Per HPI Physical Examination - Vital Signs Temperature: 97.8 F Blood Pressure: 147/79 Pulse: 58 Respirations: 18 Pulse Ox (%): 97 Assessment And Plan - Plan Assessment plan Ataxia Fall Unsteady gait Metabolic encephalopathy likely secondary to hyponatremia Normal pressure hydrocephalus fatigue and malaise/weakness/AMS Electrolytes normal in ED, monitor and trend checked repeated cortisol, TSH, thyroid peroxidase, PTH, Ammonia, UDS, Vit D, Vit B12, HgbA1c Adrenal eval per CT abd without contrast - negative 11/04 CT head/CT angio head and neck negative from ED Neurochecks Q4h MRI brain - questionable NPH IMPRESSION: No acute intracranial process. Stable ventriculomegaly which may relate to centrally predominant volume loss or normal pressure hydrocephalus, please correlate for clinical features of normal pressure hydrocephalus. Stable mild periventricular deep white matter T2 hyperintensities, nonspecific, but most suggestive of chronic small vessel ischemic changes. Dr. Staples following outpatient - PET scan 11/17/23 neurology 11/05 Dr. Staples discussed plan for MRI c-spine, pt declines LP 11/06 feeling better per report. Slept from 3am to 7am. Refused daily labs today PT consult eval and treat 11/07 Pending discharge for acute inpatient rehab Acute kidney injury unknown baseline Gentle IV fluids hyponatremia Trend electrolytes replace as needed Hold Duloxetine Hold Rexulti (side effects?) Hypokalemia Trend electrolytes replace as needed HTN Lisinopril Monitor and trend HLD Simvastatin DVT/GI prophylaxis Lovenox Protonix Full code Discharge Plan: Other - Code Status/Comfort Care Code Status: Full Code (Acute rehab) Critical Care: No Time Spent Managing PTS Care (In Minutes): 35
--- NOTE | 2023-11-08 10:45 | RAD REPORT ---
EXAM DESCRIPTION: MRI - C Spine Wo Cont- 11/08/2023 10:12 am CLINICAL HISTORY: r/o myelopathy COMPARISON: No comparisons FINDINGS: Cervical vertebral bodies are normal in height and alignment. No suspicious marrow edema or marrow replacing process. No fracture or traumatic subluxation. The craniocervical junction is normal. C2-3 level: Small posterior osteophyte/ disc complex is present attenuating the anterior subarachnoid space. Left-sided uncovertebral spurring mildly narrows the left exit foramen. C3-4 level: Moderate posterior osteophyte/ disc complex is seen attenuating the anterior subarachnoid space. Left-sided uncovertebral facet spurring significantly narrows the left exit foramen. Central canal is mildly narrowed. C4-5 level: Small posterior endplate osteophytes are present. Degenerative disc disease. There is mod erate to large left paracentral disc protrusion present. This results in attenuation of the anterior subarachnoid space and mass effect the left brittany cord. Mild edema is seen in the cord. Mild narrow stef th exit foramina seen caused by uncovertebral facet spurring. C5-6 level: 5 mm central disc protrusion is present resulting in severe central canal stenosis and mi ld edema within the cord. Mild narrowing of both exit foramina, greater on the left, caused by uncove rtebral spurring. C6-7 level: Moderate to large posterior osteophyte/ disc complex is present resulting moderate centra l canal stenosis. 4 mm of central cord myelomalacia seen at this level. Left-sided facet and uncovert ebral spurring narrows the left exit foramen. C7-T1 level: Small central disc herniation is present attenuating the anterior subarachnoid space and contacting the anterior cord. IMPRESSION: Moderately severe multilevel degenerative spondylosis is seen throughout the cervical sp ine but greatest at the lower levels of the cervical spine. Severe central canal stenosis is seen at C5-6.
--- NOTE | 2023-11-08 13:10 | EKG ---
Test Date: 2023-11-04 Test Time: 14:41:25 Plush Weaver: VALERIE MEASUREMENT RESULTS: Intervals: Rate: 72 OK: 152 QRSD: 68 QT: 386 QTc: 422 [place]: P: 66 OK: 152 QRS: 33 T: 40 INTERPRETIVE STATEMENTS: Normal sinus rhythm Possible Left atrial enlargement Anterior infarct, age undetermined Abnormal ECG Compared to ECG 03/14/2023 16:39:33 No significant changes Electronically Signed On 11-08-23 12:59:19 CDT by Monroe Dye
[2023-11-08 18:57] VITALS: BMI 36.1
[2023-11-08 22:29] LABS: 1,25 Dihydroxy Vitamin D3 37 pg/mL; Vitamin D 1,25-Dihydroxy Total 37 pg/mL (18-72); Vitamin D,1,25-OH2, D2 <8 pg/mL
[2023-11-09] MEDS: FOLIC ACID 1 MG TABLET PO SCH (08:22)
--- NOTE | 2023-11-09 10:26 | P.PN ---
Subjective Date of Service: 11/09/23 Primary Care Provider: Sarah. Has seen Dr. Staples Chief Complaint: AMS Admitted for ataxia MRI of the C-spine ordered11/07 prior MRI suggestive of normal pressure hydrocephalus cephalas Plan to discharge to acute inpatient rehab pending bed availability/author ization - Physical Exam General: Alert, In no apparent distress, Oriented x3 HEENT: Atraumatic, Normocephalic Neck: Supple Respiratory: Normal air movement Cardiovascular: Normal pulses, Regular rate/rhythm Capillary refill: <2 Seconds Gastrointestinal: Soft and benign Musculoskeletal: No clubbing, No swelling Integumentary: No rashes Neurological: Normal speech, Normal affect, Abnormal tone Lymphatics: No axilla or inguinal lymphadenopathy Review of Systems per HPI Physical Examination - Vital Signs Temperature: 97.1 F Blood Pressure: 156/72 Pulse: 59 Respirations: 17 Pulse Ox (%): 99 Assessment And Plan - Plan Assessment plan Ataxia Fall Unsteady gait Metabolic encephalopathy likely secondary to hyponatremia Normal pressure hydrocephalus fatigue and malaise/weakness/AMS Electrolytes normal in ED, monitor and trend checked repeated cortisol, TSH, thyroid peroxidase, PTH, Ammonia, UDS, Vit D, Vit B12, HgbA1c Adrenal eval per CT abd without contrast - negative 11/04 CT head/CT angio head and neck negative from ED Neurochecks Q4h MRI brain - questionable NPH IMPRESSION: No acute intracranial process. Stable ventriculomegaly which may relate to centrally predominant volume loss or normal pressure hydrocephalus, please correlate for clinical features of normal pressure hydrocephalus. Stable mild periventricular deep white matter T2 hyperintensities, nonspecific, but most suggestive of chronic small vessel ischemic changes. Dr. Staples following outpatient - PET scan 11/17/23 neurology 11/05 Dr. Staples discussed plan for MRI c-spine, pt declines LP 11/06 feeling better per report. Slept from 3am to 7am. Refused daily labs today PT consult eval and treat 11/07 Pending discharge for acute inpatient rehab Acute kidney injury unknown baseline Gentle IV fluids hyponatremia Trend electrolytes replace as needed Hold Duloxetine Hold Rexulti (side effects?) Hypokalemia Trend electrolytes replace as needed HTN Lisinopril Monitor and trend HLD Simvastatin DVT/GI prophylaxis Lovenox Protonix Full code Discharge Plan: Other (Acute inpatient rehab) - Code Status/Comfort Care Code Status: Full Code Critical Care: No Time Spent Managing PTS Care (In Minutes): 35
[2023-11-10 04:06] LABS: Albumin 3.1 g/dL (3.4-5.0); Anion Gap 6.5 mEq/L (5.0-15.0); Magnesium 1.9 mg/dL (1.6-2.4); Phosphorus 3.7 mg/dL (2.5-4.9); Potassium 3.5 mEq/L (3.5-5.1)
--- NOTE | 2023-11-10 09:34 | P.DS ---
Admission Date: 11/06/23 Discharge Date: 11/10/23 Primary Care Provider: Sarah. Has seen Dr. Staples Disposition: TRANSFER TO INPATIENT REHAB Reason for Admission: AMS Brief History of Present Illness: is a 67-year-old female with a past medical history of hypertension, hyperlipidemia, depression who has been having periods of confusion and ataxia per her family. She followed up with Dr. Staples and had a normal exam, NIH score of 0, and a MRI of the brain that was normal. The family called Dr. Staples's office with concern for repeated episodes of ataxia and altered mental status after his evaluation. He directed them to bring her to the emergency department. He has a PET scan of her brain ordered for November 16 and a follow-up in his office for the same week. On exam in the emergency department the emergency room physician found her to have a normal exam, NIH scale of 0, and spoke with Dr. Staples regarding plan. It was agreed that she would be admitted for observation and evaluation of vessels of the head and neck. Her labs are unremarkable, CT head impression "stable prominence of the ventricular caliber relative to the sulcus in findings may relate to centrally predominant volume loss or normal pressure hydrocephalus."," No acute intracranial process." CT angio of the head and neck impression is "no evidence of large vessel occlusion or flow-limiting stenosis... "No significant flow abnormality of the neck vessels is identified. Incidentally noted multiple right thyroid nodules, which may deserve additional evaluation by dedicated thyroid ultrasound on outpatient basis. " We will observe Ms. Iglesias in the hospital and await MRI of the brain tomorrow morning Home medications list reviewed: Yes (Rexulti, Duloxetine , simvastatin, lisinopril, ) - Physical Exam General: Alert, Oriented x3, Cooperative, Obese HEENT: Atraumatic, Normocephalic, Other (mild exopthalmus) Neck: Supple, JVD not distended Respiratory: Clear to auscultation bilaterally Cardiovascular: Regular rate/rhythm, Normal S1 S2, Edema (mild pedal edema) Capillary refill: <2 Seconds Gastrointestinal: Soft and benign, Other (trunchal obesity) Musculoskeletal: No clubbing, Other (bilateral knees mildly swollen) Integumentary: No rashes Neurological: Normal speech, Abnormal tone Lymphatics: No axilla or inguinal lymphadenopathy Hospital Course: 67 year-old female patient presented with ataxia confusion, weakness. Was noted to have Condition improved with metabolic encephalopathy, normal pressure hydrocephalus, ataxia, unsteady gait. Was evaluated by neurology, fall precautions, electrolyte replacement, potassium, sodium, Patient tolerating diet, stable for discharge to home with follow-up appointment with primary care physician. Follow-up with neurology after discharge PROBLEM: Ataxic gait Normal pressure hydrocephalus will need to follow-up with neurology after discharge Confusion metabolic encephalopathy likely secondary to hyponatremia improved with IV fluid Hypokalemia improved with electrolyte replacement Acute kidney injury improved with IV fluids Weakness, fall precautions, plan to transition to inpatient acute rehab for discharge for continued PT OT and speech therapy 11/03 MRI of the brain MRI brain - questionable NPH IMPRESSION: No acute intracranial process. Stable ventriculomegaly which may relate to centrally predominant volume loss or normal pressure hydrocephalus, please correlate for clinical features of normal pressure hydrocephalus. Stable mild periventricular deep white matter T2 hyperintensities, nonspecific, but most suggestive of chronic small vessel ischemic changes. CT of the head IMPRESSION: Stable prominence of the ventricular caliber relative to the sulci in findings may relate to centrally predominant volume loss or normal pressure hydrocephalus. Please correlate clinically. No acute intracranial process. CTA of the neck Enlarged right thyroid lobe with small heterogeneous nodules, not exceeding 1 cm. IMPRESSION: No significant flow abnormality of the neck vessels is identified. CTA of the head IMPRESSION: No evidence of large vessel occlusion or flow-limiting stenosis. Variant anatomy as above. Continue home medicines as previously prescribed GOAL: Clear understanding of disease process INSTRUCTIONS: Physician Discharge Instructions: -DC IV and DC home -Follow-up with PCP in 1 to 2 weeks -Please call Dr. James at [phone] if any questions regarding hospital stay -Please call nursing station at [phone] if any nursing or medication questions -Return to the emergency room if symptoms worsen Diet: ADA, low sodium Activity: Fall precautions Vital Signs/Physical Exam: Temp Pulse Resp BP Pulse Ox 97.1 F 59 17 156/72 H 99 11/10/23 09:23 11/10/23 09:23 11/10/23 09:23 11/10/23 09:23 11/10/23 09:23 Laboratory Data at Discharge: WBC Cancelled 11/08/23 05:00 Hgb Cancelled 11/08/23 05:00 Hct Cancelled 11/08/23 05:00 Plt Count Cancelled 11/08/23 05:00 PT 11.8 SECONDS (9.5-12.5) 11/04/23 15:15 INR 1.07 11/04/23 15:15 Sodium 139 mEq/L (136-145) 11/10/23 03:07 Potassium 3.5 mEq/L (3.5-5.1) 11/10/23 03:07 BUN 22 mg/dL (7-18) H 11/10/23 03:07 Creatinine 1.23 mg/dL (0.55-1.02) H 11/10/23 03:07 Glucose 127 mg/dL (74-106) H 11/10/23 03:07 Phosphorus 3.7 mg/dL (2.5-4.9) 11/10/23 03:07 Magnesium 1.9 mg/dL (1.6-2.4) 11/10/23 03:07 Total Bilirubin 0.6 mg/dL (0.2-1.0) 11/05/23 01:28 AST 11 U/L (15-37) L 11/05/23 01:28 ALT 21 U/L (13-56) 11/05/23 01:28 Alkaline Phosphatase 77 U/L (45-117) 11/05/23 01:28 Triglycerides 89 mg/dL (<150) 11/05/23 01:28 Cholesterol 157 mg/dL (<200) 11/05/23 01:28 HDL Cholesterol 68 mg/dL (40-60) H 11/05/23 01:28 Cholesterol/HDL Ratio 2.31 11/05/23 01:28 Home Medications: Duloxetine HCl 60 mg PO DAILY 11/04/23 Lisinopril [Zestril] 40 mg PO DAILY 11/04/23 Simvastatin 40 mg PO DAILY 11/04/23 Followup: Casper Smith DO [Primary Care Provider] - Time spent managing pt's care (in minutes): 55
[2023-11-10] MEDS: MAGNES/ALUMIN/SIMET 30ML UCUP PO ONE (18:31)
--- NOTE | 2023-11-11 01:56 | PN ---
Date of Progress Note: 11/10/2023 Time: 2039 Reason: Gait difficulties. Interval History: The patient is doing better. Plan is for her to go home with some home health and non-skilled. MRI cervical spine demonstrates multilevel degenerative changes, moderate to severe w ith severe stenosis at C5/6 as well as significant stenosis at C4/5 with left cord compression and ed diony in the cord, myelomalacia at C6/7 as well 4 mm. I suspect she fell and developed central cord sy ndrome, from which she is recovering, but she will most certainly need the opinion of a neurosurgeon in the very near future. Physical Examination: General: She is awake, alert, oriented, conversant, slightly tangential. Ocular motion full. Field s full. Strength is full. Sensation intact. Reflexes are actually 1/4. She is ambulating with a r olling walker. Impression: Memory loss, hydrocephalus, cervical spine stenosis/myelopathy. She is not grossly myel opathic clinically, but the subacute gait deterioration as well as the multilevel cord compression ar e going to warrant outpatient Neurosurgical consult. I reviewed that with the patient, and reviewed that with the son and they are all in agreement that the patient is at least clinically stable to hav e that workup done as an outpatient. We will see her back in the office and make those arrangements. Thank you for the consult. ASAD Voice ID: [id number] Report ID: [id number]
[2023-11-11] MEDS: PANTOPRAZOLE 40MG TABLET PO SCH (07:30)
[2023-11-11 08:32] VITALS: BP 145/87; TEMP 97.2
[2023-11-11 12:30] VITALS: O2SAT 98
--- NOTE | 2023-11-11 19:51 | P.PN ---
Subjective Date of Service: 11/11/23 Primary Care Provider: Has seen Dr. Staples Chief Complaint: AMS Admitted for ataxia MRI of the C-spine ordered11/07 prior MRI suggestive of normal pressure hydrocephalus cephalas Plan to discharge to acute inpatient rehab pending bed availability/author ization - Physical Exam General: Alert, In no apparent distress, Oriented x3 HEENT: Atraumatic, Normocephalic Neck: Supple Respiratory: Normal air movement Cardiovascular: Normal pulses, Regular rate/rhythm Capillary refill: <2 Seconds Gastrointestinal: Soft and benign Musculoskeletal: No clubbing, No swelling Integumentary: No rashes Neurological: Normal speech, Normal affect, Abnormal tone Lymphatics: No axilla or inguinal lymphadenopathy Review of Systems per HPI Physical Examination - Vital Signs Temperature: 97.2 F Blood Pressure: 145/87 Pulse: 61 Respirations: 15 Pulse Ox (%): 98 Assessment And Plan - Plan Assessment plan Ataxia Fall Unsteady gait Metabolic encephalopathy likely secondary to hyponatremia Normal pressure hydrocephalus fatigue and malaise/weakness/AMS Electrolytes normal in ED, monitor and trend checked repeated cortisol, TSH, thyroid peroxidase, PTH, Ammonia, UDS, Vit D, Vit B12, HgbA1c Adrenal eval per CT abd without contrast - negative 11/04 CT head/CT angio head and neck negative from ED Neurochecks Q4h MRI brain - questionable NPH IMPRESSION: No acute intracranial process. Stable ventriculomegaly which may relate to centrally predominant volume loss or normal pressure hydrocephalus, please correlate for clinical features of normal pressure hydrocephalus. Stable mild periventricular deep white matter T2 hyperintensities, nonspecific, but most suggestive of chronic small vessel ischemic changes. Dr. Staples following outpatient - PET scan 11/17/23 neurology 11/05 Dr. Staples discussed plan for MRI c-spine, pt declines LP 11/06 feeling better per report. Slept from 3am to 7am. Refused daily labs today PT consult eval and treat 11/07 Pending discharge for acute inpatient rehab Acute kidney injury unknown baseline Gentle IV fluids hyponatremia Trend electrolytes replace as needed Hold Duloxetine Hold Rexulti (side effects?) Hypokalemia Trend electrolytes replace as needed HTN Lisinopril Monitor and trend HLD Simvastatin DVT/GI prophylaxis Lovenox Protonix Full code Discharge Plan: Other (Acute inpatient rehab) Critical Care: No Time Spent Managing PTS Care (In Minutes): 35
== END 2023-11-11 09:22 | disposition home health service (06) | DRG 56 ==
LOC: ER 13:36 → ERHOLD 18:06 → 4TH 20:15 → OBSVTOIN 11-06 12:00
PROVIDERS: ADMIT Internal Medicine; ATTEND Hospitalist
DX: G91.2 (Idiopathic) normal pressure hydrocephalus (principal); G93.41 Metabolic encephalopathy; E87.1 Hypo-osmolality and hyponatremia; N17.9 Acute kidney failure, unspecified; G95.9 Disease of spinal cord, unspecified; I10 Essential (primary) hypertension; E87.6 Hypokalemia; E04.1 Nontoxic single thyroid nodule; E66.9 Obesity, unspecified; M48.02 Spinal stenosis, cervical region; E78.00 Pure hypercholesterolemia, unspecified; R27.0 Ataxia, unspecified; R41.3 Other amnesia; Z60.2 Problems related to living alone; Z63.4 Disappearance and death of family member; Z68.36 Body mass index [BMI] 36.0-36.9, adult; Z96.652 Presence of left artificial knee joint; Z79.899 Other long term (current) drug therapy
CPT/HCPCS: 36415; 70450; 70496; 70498; 70551; 71045; 72141; 74150; 80048; 80053; 80061; 80069; 80076; 80307; 81001; 82024; 82077; 82140; 82533; 82607; 82652; 83036; 83540; 83735; 83880; 83970; 84100; 84443; 84466; 84484; 85025; 85610; 86376; 93005; 97112; 97116; 97161; 97530; 99285; G0378; J1100; J1650; J3475; J7040; Q9967

== ENCOUNTER 2024-04-05 09:19 | Emergency (ER) | payer OTHER ==
[2024-04-05] MEDS ORDERED: DIAZEPAM 10 MG/2 ML INJ SYRINGE ONE (09:50)
[2024-04-05 10:08] LABS: Absolute Basophils 0.1 K/uL (0-0.5); Absolute Eosinophils 0.2 K/uL (0-0.5); Absolute Monocytes 0.6 K/uL (0.1-1.3); Absolute Neutrophil 5.1 K/uL (1.8-8.0); Basophils % 0.6 % (0-1.3); Eosinophils % 2.9 % (0-4.4); Hematocrit 37.9 % (36.0-45.0); Hemoglobin 12.7 g/dL (12.0-15.0); Lymphocytes % 24.3 % (15.3-44.8); MCH 29.9 pg (27.0-35.0); MCHC 33.7 g/dL (32.0-36.0); MCV 88.9 fL (80-100); MPV 8.7 fL (7.6-11.3); Monocytes % 8.1 % (3.3-12.3); Neutrophils % 64.1 % (41.7-73.7); Nucleated Red Blood Cells % 0.2 % (0-0); Platelets 222 thou/uL (152-406); RBC Red Blood Cell Count 4.26 M/uL (3.86-4.86); Red Cell Distribution Width 13.9 % (12.1-15.2)
[2024-04-05 10:22] LABS: Anion Gap 6.4 mEq/L (5.0-15.0); Potassium 4.4 mEq/L (3.5-5.1); Troponin High Sensitivity 8.1 pg/mL (<58.9)
--- NOTE | 2024-04-05 11:35 | ER ---
Nurse's Notes [facility] Name: Katie Iglesias Age: 68 yrs Sex: Female : 1955 Arrival Date: 04/05/2024 Time: 09:19 Bed 7 Private MD: Diagnosis: Anxiety disorder, unspecified Presentation: 04/05 09:22 Chief complaint: EMS states: Called EMS for SOB, HR 59, Spo2 and other VSS WNL, pt ph appears anxious. Coronavirus screen: Vaccine status: Patient reports receiving the 2nd dose of the covid vaccine. Ebola Screen: No symptoms or risks identified at this time. Initial Sepsis Screen: Does the patient meet any 2 criteria? No. Patient's initial sepsis screen is negative. Does the patient have a suspected source of infection? No. Patient's initial sepsis screen is negative. Risk Assessment: Do you want to hurt yourself or someone else? Patient reports no desire to harm self or others. Onset of symptoms was April 05, 2024. 09:22 Method Of Arrival: EMS: [facility] ph 09:22 Acuity: [facility] 3 ph Historical: - Allergies: : No Known Allergies; kc6 - PMHx: 09:59 Hypercholesterolemia; Hypertensive disorder; kc6 - PSHx: 09:59 section; L knee replacement; Thyroidectomy; kc6 - Immunization history:: Adult Immunizations up to date. - Infectious Disease History:: Denies. - Social history:: Smoking status: unknown. Screenin:00 [facility] ED Fall Risk Assessment (Adult) History of falling in the last 3 months, kc6 including since admission No falls in past 3 months (0 pts) Confusion or Disorientation No (0 pts) Intoxicated or Sedated No (0 pts) Impaired Gait No (0 pts) Mobility Assist Device Used No (0 pt) Altered Elimination No (0 pt) Score/Fall Risk Level 0 - 2 = Low Risk Oriented to surroundings. Abuse screen: Denies threats or abuse. Denies injuries from another. Nutritional screening: No deficits noted. Tuberculosis screening: No symptoms or risk factors identified. Assessment: 09:59 General: Appears in no apparent distress. comfortable, well groomed, well developed, kc6 Behavior is cooperative, appropriate for age, anxious. Pain: Denies pain. Neuro: Level of Consciousness is awake, alert, obeys commands, Oriented to person, place, time, situation, Appropriate for age. Cardiovascular: Reports shortness of breath, Denies chest pain, Heart tones S1 S2 present Capillary refill < 3 seconds Rhythm is sinus bradycardia. Respiratory: Airway is patent Trachea midline Respiratory effort is even, unlabored, Respiratory pattern is regular, symmetrical. GI: No signs and/or symptoms were reported involving the gastrointestinal system. : No signs and/or symptoms were reported regarding the genitourinary system. EENT: No signs and/or symptoms were reported regarding the EENT system. Derm: No signs and/or symptoms reported regarding the dermatologic system. Skin is intact, is healthy with good turgor, Skin is pink, warm \T\ dry. Musculoskeletal: No signs and/or symptoms reported regarding the musculoskeletal system. Circulation, motion, and sensation intact. Capillary refill < 3 seconds, Range of motion: intact in all extremities. 11:07 Reassessment: Patient appears in no apparent distress at this time. No changes from kc6 previously documented assessment. Patient and/or family updated on plan of care and expected duration. Pain level reassessed. Patient is alert, oriented x 3, equal unlabored respirations, skin warm/dry/pink. 12:00 Reassessment: Patient appears in no apparent distress at this time. No changes from kc6 previously documented assessment. Patient and/or family updated on plan of care and expected duration. Pain level reassessed. Patient is alert, oriented x 3, equal unlabored respirations, skin warm/dry/pink. Vital Signs: 09:47 BP 150 / 80; Pulse 51; Resp 19 S; Pulse Ox 98% on R/A; kc6 ED Course: 09:21 Patient arrived in ED. ec2 09:21 Praker Lazo MD is Attending Physician. ec2 09:23 Triage completed. ph 09:37 Zoe Rivas, NAINA is Primary Nurse. kc6 09:51 XRAY Chest (1 view) In Process Unspecified. EDMS 09:58 Inserted saline lock: 20 gauge in left antecubital area, using aseptic technique. Blood kc6 collected. Flushed with 10 mL NS. Patient maintains SpO2 saturation greater than 95% on room air. 09:59 Arm band placed on. kc6 09:59 Patient has correct armband on for positive identification. Placed in gown. Bed in low kc6 position. Call light in reach. Side rails up X2. Adult w/ patient. mixing engineer on. Pulse ox on. NIBP on. Door closed. Noise minimized. Lights dimmed. Warm blanket given. Pillow given. 11:38 Chest Single View In Process Unspecified. EDMS 12:00 No provider procedures requiring assistance completed. IV discontinued, intact, kc6 bleeding controlled, No redness/swelling at site. Pressure dressing applied. Administered Medications: 09:58 Drug: Diazepam IVP 2 mg IVP once Route: IVP; Site: left antecubital; kc6 10:07 Follow up: Response: No adverse reaction; Anxiety decreased; RASS: Drowsy (-1) kc6 Medication: 12:01 VIS not applicable for this client. kc6 Outcome: 11:35 Discharge ordered by . ec2 12:00 Discharged to home via wheelchair, with family, kc6 12:00 Condition: improved 12:00 Discharge instructions given to patient, family, Instructed on discharge instructions, follow up and referral plans. medication usage, Demonstrated understanding of instructions, follow-up care, medications, Prescriptions given X 1, 12:01 Patient left the ED. kc6 Signatures: Dispatcher [employer] Debby Mishra RN RN Zoe Martínez RN RN kc6 Parker Lazo MD MD ec2
--- NOTE | 2024-04-05 11:35 | EDPHYS ---
Physician Documentation [facility] Name: Katie Iglesias Age: 68 yrs Sex: Female : 1955 Arrival Date: 04/05/2024 Time: 09:19 Bed 7 Private MD: ED Physician Parker Lazo HPI: 04/05 09:35 This 68 yrs old Female presents to ER via EMS with complaints of Shortness Of ec2 Breath. 09:35 Patient arrives today for evaluation of shortness of breath. Patient reports that she ec2 is been feeling anxious the past several days, states that she has some issues at home. Patient reports that she had some chest tightness last night which were prompted evaluation this morning. Reports no chest pain. Patient reports improvement in her symptoms since last night. No vomiting, no diarrhea, history of anxiety, is on escitalopram. Patient reports otherwise no recent illnesses and normal state of health.. Historical: - Allergies: 09:59 No Known Allergies; kc6 - PMHx: 09:59 Hypercholesterolemia; Hypertensive disorder; kc6 - PSHx: 09:59 section; L knee replacement; Thyroidectomy; kc6 - Immunization history:: Adult Immunizations up to date. - Infectious Disease History:: Denies. - Social history:: Smoking status: unknown. ROS: 09:35 Constitutional: as per hpi ec2 Exam: 09:35 Constitutional: GEN: NAD Head: atraumatic Eyes: EOMI Ears: External ears are ec2 normal. CV: regular rate LUNGS: no respiratory distress ABD: non-distended SKIN: no evidence of rashes MSK: no evidence of trauma. Psych: Anxious individual was otherwise cooperative Vital Signs: 09:47 BP 150 / 80; Pulse 51; Resp 19 S; Pulse Ox 98% on R/A; kc6 MDM: 09:22 Patient medically screened. ec2 09:35 Data reviewed: vital signs. ED course: Patient arrives today d/t concern for sob and ec2 anxiety. Examination remarkable for anxious individual was otherwise in no acute distress with an otherwise reassuring examination. Will obtain lab work, EKG, give the patient Valium. Differential includes processes such as anxiety, ACS, PE.. 10:08 ED course: EKG independently reviewed and interpreted by me, shows normal sinus rhythm, ec2 rate of 50, no acute ST segment elevations, nonactionable intervals.. 10:40 ED course: Metabolic profile reassuring, CBC reassuring, troponin within normal ranges .ec2 11:33 ED course: Chest x-ray independently reviewed and interpreted by me, shows no acute ec2 intrathoracic process. On reassessment patient is well-appearing, no acute distress. Will discharge home, suspect anxiety. Return precautions given.. 04/05 09:35 Order name: Basic Metabolic Panel; Complete Time: 10:40 ec2 04/05 09:35 Order name: CBC with Diff; Complete Time: 10:40 ec2 04/05 09:35 Order name: Troponin HS; Complete Time: 10:40 ec2 04/05 09:35 Order name: XRAY Chest (1 view) ec2 04/05 09:55 Order name: Chest Single View EDMS 04/05 09:35 Order name: EKG; Complete Time: 09:36 ec2 04/05 09:35 Order name: Cardiac monitoring; Complete Time: 09:58 ec2 04/05 09:35 Order name: EKG - Nurse/Tech; Complete Time: 09:58 ec2 04/05 09:35 Order name: IV Saline Lock; Complete Time: 09:58 ec2 04/05 09:35 Order name: Labs collected and sent; Complete Time: 09:58 ec2 04/05 09:35 Order name: O2 Per Protocol; Complete Time: 09:47 ec2 04/05 09:35 Order name: O2 Sat Monitoring; Complete Time: 09:47 ec2 Administered Medications: 09:58 Drug: Diazepam IVP 2 mg IVP once Route: IVP; Site: left antecubital; kc6 10:07 Follow up: Response: No adverse reaction; Anxiety decreased; RASS: Drowsy (-1) kc6 Disposition Summary: 04/05/24 11:35 Discharge Ordered Notes: Location: Home ec2 Condition: Stable ec2 Diagnosis - Anxiety disorder, unspecified ec2 Followup: ec2 - With: Private Physician - When: - Reason: Re-evaluation by your physician Discharge Instructions: - Discharge Summary Sheet ec2 - Panic Attack ec2 Forms: - Medication Reconciliation Form ec2 - Antibiotic Education ec2 - Prescription Opioid Use ec2 - Patient Portal Instructions ec2 - Leadership Thank You Letter ec2 Prescriptions: - Hydroxyzine HCl 25 mg Oral Tablet - take 1 tablet ORAL route every 6 hours As needed; 30 tablet; Refills: 0, ec2 Product Selection Permitted Signatures: Dispatcher Med[employer]oe Velazquez RN RN kc6 Parker Lazo MD MD ec2
[2024-04-05 12:22] VITALS: BP 150/80; O2SAT 98
--- NOTE | 2024-04-05 13:47 | RAD REPORT ---
Procedure: Chest Single View History: Shortness of breath Comparison: October 2023 The lungs appear clear of acute infiltrate. No significant pleural effusion noted. The heart is normal size. IMPRESSION: No acute abnormality is displayed.
--- NOTE | 2024-04-06 12:12 | EKG ---
Test Date: 2024-04-05 Test Time: 10:03:04 Fence Supervisor: PIERRE MEASUREMENT RESULTS: Intervals: Rate: 50 AL: 158 QRSD: 74 QT: 488 QTc: 444 [place]: P: 34 AL: 158 QRS: 76 T: 52 INTERPRETIVE STATEMENTS: Sinus bradycardia Possible Left atrial enlargement Cannot rule out Anterior infarct, age undetermined Abnormal ECG Compared to ECG 11/04/2023 14:41:25 Sinus rhythm no longer present Myocardial infarct finding still present Electronically Signed On 04-06-24 12:09:17 CDT by Kevin Suarez
== END 2024-04-05 12:01 | disposition home or self-care (01) ==
LOC: ER 09:19
DX: F41.9 Anxiety disorder, unspecified (principal); I10 Essential (primary) hypertension; E78.00 Pure hypercholesterolemia, unspecified
CPT/HCPCS: 85025; 80048; 36415; 84484; 71045 ×2; J3360; 93005; 96374; 99285

== ENCOUNTER 2024-11-20 07:41 | Emergency (ER) | payer OTHER ==
--- NOTE | 2024-11-20 08:25 | EDPHYS ---
Physician Documentation [facility] Name: Katie Iglesias Age: 68 yrs Sex: Female : 1955 Arrival Date: 11/20/2024 Time: 07:40 Bed 13 Private MD: ED Physician Ranjan Robison HPI: 11/20 08:21 This 68 yrs old Female presents to ER via EMS with complaints of INSOMNIA. ms3 08:21 68-year-old female with past medical history of hypercholesterolemia, hypertension, ms3 Alzheimer's presents to the emergency department via EMS for insomnia. Patient states she was unable to sleep last night and attempted to call her sons. After not being able to reach them she then called 911 and ambulance came. Patient denies headache, shortness of breath, nausea, vomiting, chest pain. Patient does not wish to have blood drawn or further workup.. Historical: - Allergies: 07:45 No Known Allergies; hb - Home Meds: 07:45 duloxetine 60 mg Oral cpDR daily [Active]; lisinopril 40 mg Oral tablet daily [Active]; hb Rexulti 0.5 mg Oral tablet daily [Active]; simvastatin 40 mg Oral tablet daily [Active]; donepezil oral [Active]; - PMHx: 07:45 Hypercholesterolemia; Hypertensive disorder; Alzheimer's disease; hb - PSHx: 07:45 section; L knee replacement; Thyroidectomy; hb - Immunization history:: Adult Immunizations up to date. - Infectious Disease History:: Denies. - Social history:: Smoking status: Patient denies any tobacco usage or history of. ROS: 08:21 Constitutional: Negative for fever, and chills. Cardiovascular: Negative for chest ms3 pain, and palpitations. Respiratory: Negative for shortness of breath, cough, wheezing, and pleuritic chest pain, Abdomen/GI: Negative for abdominal pain, nausea, vomiting, diarrhea, and constipation, MS/Extremity: Negative for injury and deformity, Skin: Negative for injury, rash, and discoloration, 08:21 Psych: Positive for Insomnia, Exam: 08:21 Constitutional: This is a well developed, well nourished patient who is awake, alert, ms3 and in no acute distress. Cardiovascular: Regular rate and rhythm with a normal S1 and S2. No gallops, murmurs, or rubs. Normal PMI, no JVD. No pulse deficits. Respiratory: Lungs have equal breath sounds bilaterally, clear to auscultation and percussion. No rales, rhonchi or wheezes noted. No increased work of breathing, no retractions or nasal flaring. Abdomen/GI: Soft, non-tender, with normal bowel sounds. No distension or tympany. No guarding or rebound. No evidence of tenderness throughout. Skin: Warm, dry with normal turgor. Normal color with no rashes, no lesions, and no evidence of cellulitis. MS/ Extremity: Pulses equal, no cyanosis. Neurovascular intact. Full, normal range of motion. 08:21 Neuro: Orientation: to person, place, time, situation, Mentation: is normal, Cranial nerves: grossly normal, CN I not tested, CN II- XII are normal as tested, Cerebellar function: is grossly normal, normal finger to nose testing, Motor: is normal, Vital Signs: 07:43 BP 136 / 71; Pulse 53; Resp 15; Temp 97.8; Pulse Ox 99% on R/A; Weight 93.44 kg; Height hb 4 ft. 11 in. ; Pain 0/10; 07:43 Body Mass Index 41.61 (93.44 kg, 149.86 cm) hb 07:43 Pain Scale: Adult hb MDM: 08:04 Medical Screening Exam initiated kb 08:21 Differential Diagnosis Insomnia. Data reviewed: vital signs, nurses notes, and as a ms3 result, I will discharge patient. Historians other than the Patient: EMS: [facility]. Counseling: I had a detailed discussion with the patient and/or guardian regarding the historical points, exam findings, and any diagnostic results supporting the discharge/admit diagnosis, the need for outpatient follow up, to return to the emergency department if symptoms worsen or persist or if there are any questions or concerns that arise at home. Refusal of service: The patient/guardian displays adequate decision making capability and despite a detailed discussion of alternatives, benefits, risks, and consequences refuses: CT Scan, all lab tests. Special discussion: I discussed with the patient/guardian in detail that at this point there is no indication for admission to the hospital. It is understood, however, that if the symptoms persist or worsen the patient needs to return immediately for re-evaluation. ED course: Patient declines workup at this time. Patient is alert and oriented x 4, in no apparent distress, nontoxic-appearing, speaking full sentences. Patient to follow-up with her primary care physician in 2 to 3 days. Patient understands agrees plan. All questions were answered. Return precautions discussed include worsening symptoms, or any other concerns.. Administered Medications: No medications were administered Disposition Summary: 11/20/24 08:24 Discharge Ordered Notes: Location: Home ms3 Condition: Stable ms3 Diagnosis - Insomnia ms3 Followup: ms3 - With: Shaggy Plunkett DO - When: 2 - 3 days - Reason: Recheck today's complaints Discharge Instructions: - Discharge Summary Sheet ms3 - Insomnia ms3 Forms: - Medication Reconciliation Form ms3 - Antibiotic Education ms3 - Prescription Opioid Use ms3 - Patient Portal Instructions ms3 - Leadership Thank You Letter ms3 Signatures: Mag Pena, HAYLEY [place]-Jenn Arnold RN RN Ranjan Robison DO DO ms3
--- NOTE | 2024-11-20 08:25 | ER ---
Nurse's Notes [facility] Name: Katie Iglesias Age: 68 yrs Sex: Female : 1955 Arrival Date: 11/20/2024 Time: 07:40 Bed 13 Private MD: Diagnosis: Insomnia Presentation: 11/20 07:43 Chief complaint: EMS states: Was unable to sleep last night, got scared, could not get hb a hold of son so she called 911. On scene she seemed slightly confused, per son she has early Alzheimer's and is typically confused in the mornings. VS WNL, BLG 103. Coronavirus screen: At this time, the client does not indicate any symptoms associated with coronavirus-19. Ebola Screen: No symptoms or risks identified at this time. Initial Sepsis Screen: Does the patient meet any 2 criteria? No. Patient's initial sepsis screen is negative. Does the patient have a suspected source of infection? No. Patient's initial sepsis screen is negative. Risk Assessment: Do you want to hurt yourself or someone else? Patient reports no desire to harm self or others. Onset of symptoms was November 20, 2024. 07:43 Method Of Arrival: EMS: [facility] 07:43 Acuity: HELIO 3 hb Triage Assessment: 07:46 General: Appears in no apparent distress. Behavior is calm, cooperative. Pain: Denies hb pain. EENT: No signs and/or symptoms were reported regarding the EENT system. Neuro: Level of Consciousness is awake, alert, obeys commands, Oriented to person, place, situation. Cardiovascular: Patient's skin is warm and dry. Respiratory: Respiratory effort is even, unlabored, Respiratory pattern is regular, symmetrical. GI: No signs and/or symptoms were reported involving the gastrointestinal system. : No signs and/or symptoms were reported regarding the genitourinary system. Derm: Skin is pink, warm \T\ dry. Musculoskeletal: No signs and/or symptoms reported regarding the musculoskeletal system. Historical: - Allergies: 07:45 No Known Allergies; hb - Home Meds: 07:45 duloxetine 60 mg Oral cpDR daily [Active]; lisinopril 40 mg Oral tablet daily [Active]; hb Rexulti 0.5 mg Oral tablet daily [Active]; simvastatin 40 mg Oral tablet daily [Active]; donepezil oral [Active]; - PMHx: 07:45 Hypercholesterolemia; Hypertensive disorder; Alzheimer's disease; hb - PSHx: 07:45 section; L knee replacement; Thyroidectomy; hb - Immunization history:: Adult Immunizations up to date. - Infectious Disease History:: Denies. - Social history:: Smoking status: Patient denies any tobacco usage or history of. Screenin:48 [facility] ED Fall Risk Assessment (Adult) History of falling in the last 3 months, hb including since admission No falls in past 3 months (0 pts) Confusion or Disorientation No (0 pts) Intoxicated or Sedated No (0 pts) Impaired Gait No (0 pts) Mobility Assist Device Used No (0 pt) Altered Elimination No (0 pt) Score/Fall Risk Level 0 - 2 = Low Risk Oriented to surroundings, Maintained a safe environment, Educated pt \T\ family on fall prevention, incl call for assistance when getting out of bed. Abuse screen: Denies threats or abuse. Denies injuries from another. Nutritional screening: No deficits noted. Tuberculosis screening: No symptoms or risk factors identified. Assessment: 07:48 General: See triage assessment . hb 08:30 Reassessment: Patient appears in no apparent distress at this time. No changes from hb previously documented assessment. Patient and/or family updated on plan of care and expected duration. Pain level reassessed. 08:30 Reassessment: PT UP FOR DISCHARGE, AWAITING FAMILY FOR TRANSPORTATION AT THIS TIME. hb Vital Signs: 07:43 BP 136 / 71; Pulse 53; Resp 15; Temp 97.8; Pulse Ox 99% on R/A; Weight 93.44 kg; Height hb 4 ft. 11 in. ; Pain 0/10; 07:43 Body Mass Index 41.61 (93.44 kg, 149.86 cm) hb 07:43 Pain Scale: Adult hb ED Course: 07:40 Patient arrived in ED. bc6 07:40 Ranjan Robison DO is Attending Physician. ms3 07:45 Triage completed. hb 07:46 Arm band placed on. hb 07:48 Patient has correct armband on for positive identification. Provided Education on: Use hb of call light . 08:04 Mag Pena FNP-C is PHCP. kb 08:24 Shaggy Plunkett DO is Referral Physician. ms3 08:30 No provider procedures requiring assistance completed. Patient did not have IV access hb during this emergency room visit. 08:43 Jenn Osorio, RN is Primary Nurse. hb Administered Medications: No medications were administered Medication: 07:48 VIS not applicable for this client. hb Outcome: 08:24 Discharge ordered by . ms3 08:30 Discharged to home ambulatory, with family, hb 08:30 Condition: stable 08:30 Discharge instructions given to patient, Instructed on discharge instructions, follow up and referral plans. Demonstrated understanding of instructions, follow-up care, 09:26 Patient left the ED. hb Signatures: Mag Pena, TERADATA DEVELOPER-C TERADATA DEVELOPER-Ckb Jenn Osorio, RN RN hb Ranjan Robison DO DO ms3 Rowena Ruiz bc6
[2024-11-20 09:31] VITALS: BP 136/71; TEMP 97.8; O2SAT 99
== END 2024-11-20 09:26 | disposition home or self-care (01) ==
LOC: ER 07:41
DX: G47.00 Insomnia, unspecified (principal); G30.9 Alzheimer's disease, unspecified; F02.80 Dementia in other diseases classified elsewhere, unspecified severity, without behavioral disturbance, psychotic disturbance, mood disturbance, and anxiety; I10 Essential (primary) hypertension; E78.00 Pure hypercholesterolemia, unspecified
CPT/HCPCS: 99283